=== PATIENT | female | born 1970 | race Caucasian/White ===

== ENCOUNTER → 2017-09-30 | Outpatient (CLI) | payer MEDICARE, SELFPAY | PROVIDERS: Visit Provider Nurse Practitioner Family | DX: F41.9 Anxiety disorder, unspecified (principal); R53.83 Other fatigue; E55.9 Vitamin D deficiency, unspecified; Z79.899 Other long term (current) drug therapy | CPT/HCPCS: 80053; 80061; 82306; 82672; 83036; 84144; 84439; 84443; 85025 ==

== ENCOUNTER → 2017-12-30 10:32 | Outpatient (CLI) | payer MEDICARE, SELFPAY | PROVIDERS: Visit Provider Nurse Practitioner Family | DX: Z79.899 Other long term (current) drug therapy (principal) ==

== ENCOUNTER → 2018-02-17 12:51 | Outpatient (CLI) | payer MEDICARE, SELFPAY ==
--- NOTE | 2018-02-17 12:54 | XR_ITS ---
XR chest 2V HISTORY: ITS.REASON: cough ORDERING PHYSICIAN: Lay Arroyo PATIENT AGE: 47 years COMPARISON: 07/17/2017 FINDINGS: The cardiomediastinal silhouette and pulmonary vascularity are within normal limits. There is hyperinflation with attenuation of the peripheral pulmonary vessels. Biapical fibrotic changes are present. No lobar consolidation or collapse is evident. Chronic changes are present in the right CP angle... No acute bony abnormalities. IMPRESSION: 1. COPD with chronic change. 2. No acute finding
== END ==
PROVIDERS: PCP Emergency Medicine; Visit Provider Nurse Practitioner Family
DX: R06.02 Shortness of breath (principal)
CPT/HCPCS: 71046

== ENCOUNTER → 2018-02-18 08:48 | Outpatient (CLI) | payer MEDICARE, SELFPAY | PROVIDERS: PCP Emergency Medicine; Visit Provider Nurse Practitioner Family | DX: R06.02 Shortness of breath (principal) ==

== ENCOUNTER → 2018-06-26 09:33 | Outpatient (CLI) | payer MEDICARE, SELFPAY ==
[2018-06-26 18:37] LABS: Amphetamine/Metha Screen,Urine Negative ng/mL (<1000); Barbiturates Screen,Urine Negative ng/mL (<200); Benzodiazepines Screen,Urine Positive ng/mL (<200); Cannabinoid Screen,Urine Positive ng/mL (<50); Cocaine Screen,Urine Negative ng/mL (<300); Methadone Screen,Urine Negative ng/mL (<300); Opiate Screen,Urine Negative ng/mL (<300); Phencyclidine Screen,Urine Negative ng/mL (<25)
== END ==
PROVIDERS: Visit Provider Nurse Practitioner Family
DX: Z79.899 Other long term (current) drug therapy (principal)
CPT/HCPCS: 80305

== ENCOUNTER → 2018-09-25 14:31 | Outpatient (CLI) | payer MEDICARE, SELFPAY ==
[2018-09-25 16:33] LABS: Amphetamine/Metha Screen,Urine Negative ng/mL (<1000); Barbiturates Screen,Urine Negative ng/mL (<200); Benzodiazepines Screen,Urine Positive ng/mL (<200); Cannabinoid Screen,Urine Positive ng/mL (<50); Cocaine Screen,Urine Negative ng/mL (<300); Methadone Screen,Urine Negative ng/mL (<300); Opiate Screen,Urine Negative ng/mL (<300); Phencyclidine Screen,Urine Negative ng/mL (<25)
== END ==
PROVIDERS: Visit Provider Nurse Practitioner Family
DX: Z79.899 Other long term (current) drug therapy (principal)
CPT/HCPCS: 80305

== ENCOUNTER → 2018-10-27 17:59 | Outpatient (CLI) | payer MEDICARE, SELFPAY | PROVIDERS: Visit Provider Emergency Medicine | DX: J02.9 Acute pharyngitis, unspecified (principal) ==

== ENCOUNTER → 2018-12-25 13:21 | Outpatient (CLI) | payer MEDICARE, SELFPAY ==
[2018-12-25 14:17] LABS: Amphetamine/Metha Screen,Urine Negative ng/mL (<1000); Barbiturates Screen,Urine Negative ng/mL (<200); Benzodiazepines Screen,Urine Positive ng/mL (<200); Cannabinoid Screen,Urine Positive ng/mL (<50); Cocaine Screen,Urine Negative ng/mL (<300); Methadone Screen,Urine Negative ng/mL (<300); Opiate Screen,Urine Negative ng/mL (<300); Phencyclidine Screen,Urine Negative ng/mL (<25)
== END ==
PROVIDERS: Visit Provider Nurse Practitioner Family
DX: Z79.899 Other long term (current) drug therapy (principal)
CPT/HCPCS: 80305

== ENCOUNTER → 2019-01-21 10:55 | Outpatient (CLI) | payer MEDICARE, SELFPAY ==
--- NOTE | 2019-01-21 10:59 | XR_ITS ---
XR chest 2V HISTORY: ITS.REASON: cough ORDERING PHYSICIAN: Lay Arroyo PATIENT AGE: 48 years COMPARISON: 02/17/2018. FINDINGS: The cardiomediastinal silhouette and pulmonary vascularity are within normal limits. There is mild biapical pleural thickening with hyperinflation and attenuation of the peripheral pulmonary vessels consistent with COPD. No lobar consolidation or collapse and no significant change compared to the previous study. IMPRESSION: COPD, no change with no acute finding.
== END ==
PROVIDERS: PCP Nurse Practitioner Family; Visit Provider Nurse Practitioner Family
DX: J44.9 Chronic obstructive pulmonary disease, unspecified (principal); R05 Cough; R06.02 Shortness of breath; R07.81 Pleurodynia
CPT/HCPCS: 71046

== ENCOUNTER 2019-02-09 11:55 | Observation (INO) ==
--- NOTE | 2019-02-09 12:12 | Emergency Department Note ---
ED Disposition Clinical Impression: COPD exacerbation Disposition: Admitted as Observation Condition on Discharge: Fair Referrals: Milton Machuca MD [Primary Care Provider] - - Critical Care Critical Care Time: No Attestation: On , the high probability of a clinically significant, sudden or life th reatening deterioration of the following system(s) required my full and direct attention, intervention and personal management. The time I documented below is in addition to time spent performing reported procedures but includes the following listed in this critical care notation. Medical Decision Making - Anurag Inquiry Pt receiving controlled substance: No Vital Signs: 02/09/19 11:59 02/09/19 12:32 02/09/19 12:54 Temperature 98.9 F Temperature Source Oral Pulse Rate 130 H Pulse Rate [Right Brachial] 136 H 130 H Respiratory Rate 22 Blood Pressure [Right Arm] 130/111 H 142/56 H Blood Pressure Mean [Right Arm] 117 84 Blood Pressure Source [Right Arm] Automatic Cuff Automatic Cuff Blood Pressure Position [Right Arm] Sitting Sitting 02 Sat by Pulse Oximetry 92 L 93 L Oxygen Delivery Method Nasal Cannula Nasal Cannula Oxygen Flow Rate (LPM) 2 2 02/09/19 13:00 Temperature Temperature Source Pulse Rate Pulse Rate [Right Brachial] 132 H Respiratory Rate 20 Blood Pressure [Right Arm] 127/73 Blood Pressure Mean [Right Arm] 91 Blood Pressure Source [Right Arm] Automatic Cuff Blood Pressure Position [Right Arm] Sitting 02 Sat by Pulse Oximetry 92 L Oxygen Delivery Method Nasal Cannula Oxygen Flow Rate (LPM) - Lab Data Lab Results 02/09/19 12:07: WBC 7.6, RBC 4.65, Hgb 14.2, Hct 43.8, MCV 94.3, MCH 30.6, MCHC 32.4, RDW 12.9, Plt Count 174, MPV 7.9, Neut % (Auto) 82.7 H, Lymph % (Auto) 11.1, [place] % (Auto) 4.6, Eos % (Auto) 1.0, Baso % (Auto) 0.5, Neut # (Auto) 6.3, Lymph # (Auto) 0.8, [place] # (Auto) 0.4, Eos # (Auto) 0.1, Baso # (Auto) 0.0 02/09/19 12:07: Sodium 138, Potassium 4.0, Chloride 97 L, Carbon Dioxide 34 H, Anion Gap 11.0, BUN 10, Creatinine 0.69, Estimated Creat Clear 100, Estimated GFR 91, Est GFR ( Amer) 110, Glucose 107 H, Calcium 9.0, Total Bilirubin 0.3, AST 11 L, ALT 20, Alkaline Phosphatase 121 H, Total Protein 7.3, Albumin 3.8, Globulin 3.5 H, Albumin/Globulin Ratio 1.1 02/09/19 12:07: Lactate 1.3 02/09/19 12:10: Specimen Source R radial, O2 % 2.5lpm, ABG pH 7.40, ABG pCO2 54.1 H, ABG pO2 56.6 L, ABG HCO3 32.8 H, ABG Total CO2 34.5 H, ABG O2 Saturation 90, ABG Base Excess 8.1 H, Leo Test Acceptable Result diagrams: 02/09/19 12:07 02/09/19 12:07 Orders (Tests/Meds): ED MEDICATIONS Generic Name Dose Route Start Last Admin Trade Name Freq PRN Reason Stop Dose Admin Sodium Chloride 3 ml 02/09/19 12:08 Sodium Chloride 3% 15ml [facility] 03/11/19 12:07 ONCE PRN INDUCE SPUTUM COLLECTION Discontinued Medications Generic Name Dose Route Start Last Admin Trade Name Freq PRN Reason Stop Dose Admin Albuterol/Ipratropium 3 ml 02/09/19 12:09 02/09/19 12:25 Duoneb 3ml [facility] 02/09/19 12:10 3 ml ONCE ONE Administration Methylprednisolone Sodium Succinate 125 mg 02/09/19 12:09 02/09/19 12:31 Solu-Medrol 125mg/2ml Vial IV 02/09/19 12:10 125 mg ONCE ONE Administration ORDERS Category Date Time Status Blood Culture Stat Micro 02/09/19 12:08 Received Sputum Culture & Gram Stain Stat Micro 02/09/19 12:08 Ordered - Radiology Data #1 Image(s): Chest Image Reviewed: Yes I reviewed the patient's radiology image COPD, no acute infiltrate seen. - Physician Consults Physician Consulted: Sven Time: 13:50 Reason -: Admission Comment/Response: Agrees to admit the patient to the hospital. We discussed the patient's clinical information, including history, exam, laboratory and radiology results and ED course. Per hospital procedure, I will write temporary bridge inpatient orders on the patient. Specific orders requested by the admitting physician: Continue nebulizers, steroids, start Levaquin - Reevaluation(s) Time: 13:19 Reevaluation #1: Feels a little bit better. Still has wheezes, and appears dyspneic with accessory muscle use while speaking. Speaks in short sentences. General Adult HPI - General Chief complaint: Shortness of Breath/Dyspnea Stated complaint: soa Time Seen by Provider: 02/09/19 12:12 Mode of Arrival: Ambulatory Limitations: No Limitations Description of Symptoms (Recalled from ER Triage Doc. by RN): Difficulty breathing - History of Present Illness HPI narrative: Sent from the office of Dr. Machuca, where the patient was seen by Hilton Zepeda She says she has been short of breath since Friday 4 days ago. She has a cough producing "nasty sputum". She says it is also in her head with nasal congestion, nasal drainage, postnasal drip. Denies sore throat. She has had a fever. She says she was seen on the of this month by her primary care providers. Treated with an injection of steroids and antibiotics and oral Z-Brian and steroids. She says she does not think she ever got over it completely. She has COPD. She is on oxygen continuously at home and uses a nebulizer. Last nebulizer treatment at 5 AM. Used her rescue inhaler twice while taking a shower at about 9am. States she quit smoking about 2 months ago. - Related Data Home Medications Medication Instructions Recorded Confirmed ipratropium-albuterol 0.5 mg-3 3 ml INHALATION Q4-6H PRN 10/31/17 02/09/19 mg(2.5 mg base)/3 mL nebulization soln Albuterol Sulfate [Ventolin HFA] 2 puff INHALATION Q6H 02/09/19 02/09/19 Escitalopram Oxalate 10 mg PO QDAY 02/09/19 02/09/19 Fluticasone/Umeclidin/Vilanter 1 inh INHALATION DAILY 02/09/19 02/09/19 [Trelegy Ellipta] Montelukast Sodium [Singulair] 10 mg PO QHS 02/09/19 02/09/19 Nystatin 1 applic TOPICAL BID 02/09/19 02/09/19 diazePAM [Valium] 5 mg PO BID 02/09/19 02/09/19 Allergies Allergy/AdvReac Type Severity Reaction Status Date / Time No Known Allergies Allergy Verified 02/09/19 12:05 [facility] History - Hepatitis A Screen Drug use history?: No High risk sexual behaviors?: No History of sexually transmitted infection?: No Currently employed?: No Childcare worker?: No Do you have indoor plumbing?: Yes Do you have electricity?: Yes Attestation statement:: This patient has been screened for Hepatitis A risk factors. I have reviewed the patient's past medical history: Yes Medical History: Reports:: Anxiety, Chronic Obstructive Pulmonary Disease (COPD), Depression Comment: Anxiety Laterality Cases: Other Surgeries: Yes: Appendectomy, Hernia Repair, Hysterectomy-Total, Hysterectomy-Partial, Other Amputation: No Fractures: No - Social History Smoking Status: Former smoker Tobacco Type: cigarettes # Packs/Day (cigarettes): 1 Alcohol Intake: never Substance Use Type: denies use Occupational Status: disabled Housing: house Household Members: family - Psychiatric History Pschychiatric History:: Reports:: Anxiety, Depression Family Hx:: Cancer, Heart Attack, Diabetes, Hypertension, Thyroid Disorder, Stroke ROS Obtained: Yes All systems reviewed & no additional complaints - Constitutional Constitutional: Reports fever(s) - ENT Ears, Nose, Mouth, and Throat: Reports nasal congestion, Reports nasal discharge, Reports post nasal drip, Denies sore throat - Cardiovascular Cardiovascular: Reports chest pain - Respiratory Respiratory: Yes cough, Yes dyspnea, Yes excessive phlegm production, Yes wheezing - Gastrointestinal Gastrointestingal: Denies: diarrhea, vomiting Physical Exam - General General appearance: alert, in distress (Mild respiratory distress) - Head Head exam: atraumatic, normocephalic - Eye Eye exam: Present: normal appearance, EOMI - ENT ENT exam: Present: mucous membranes moist - Neck Neck exam: Present: normal inspection, trachea midline - Chest Chest inspection: Present: normal inspection, symmetric chest wall rise - Respiratory Respiratory exam: Present: respiratory distress, wheezes - Cardiovascular Cardiovascular exam: Present: normal rhythm, tachycardia (120 on my exam), normal heart sounds - Abdominal Exam Abdominal exam: Present: soft. Absent: distention, tenderness - Extremities Exam Extremities exam: Present: normal inspection, normal capillary refill - Back Exam Back exam: Present: normal inspection, tenderness (Left periscapular) - Neurological Exam Neurological exam: Present: alert, oriented X3. Absent: motor sensory deficit - Psychiatric Psychiatric exam: Present: normal affect, normal mood - Skin Skin exam: Present: warm, dry
[2019-02-09 12:27] LABS: Basophils % 0.5 % (0.1-2.0); Eosinophils # 0.1 K/mm3 (0.0-0.4); Hematocrit 43.8 % (37.0-47.0); Hemoglobin 14.2 g/dL (12.2-16.2); Lymphocytes # 0.8 K/mm3 (0.7-4.5); Lymphocytes % 11.1 % (10-50); Mean Corpuscular HGB Conc 32.4 g/dL (31.8-35.4); Mean Corpuscular Hemoglobin 30.6 pg (27.0-31.2); Mean Corpuscular Volume 94.3 fl (81-99); Mean Platelet Volume 7.9 fl (7.4-10.4); Monocytes # 0.4 K/mm3 (0.1-1.0); Monocytes % 4.6 % (1.7-9.3); Neutrophils # 6.3 K/mm3 (1.8-7.8); Neutrophils % 82.7 % (37.0-80.0); Platelet Count 174 K/mm3 (142-424); Red Blood Count 4.65 M/mm3 (4.20-5.40); Red Cell Distribution Width 12.9 % (11.5-17.5); White Blood Count 7.6 K/mm3 (4.8-10.8)
[2019-02-09 12:29] LABS: Albumin Level 3.8 gm/dL (3.4-5.0); Albumin/Globulin Ratio 1.1 (1.1-1.8); Bilirubin,Total 0.3 mg/dL (0.2-1.0); Globulin 3.5 gm/dl (1.3-3.2); Total Protein,Serum 7.3 gm/dL (6.4-8.2)
[2019-02-09 13:18] LABS: ABG Base Excess 8.1 mmol/L (-2.4-2.3); ABG HCO3 32.8 mmhg (22.0-26.0); ABG Oxygen Saturation 90 % (90-100); ABG PO2 56.6 mmhg (80-100); ABG TCO2 34.5 mmhg (23-27)
[2019-02-09 13:19] LABS: Allen's Test ACCEPTABLE; Oxygen 2.5LPM %
[2019-02-09 13:20] LABS: ABG PCO2 54.1 mmhg (35.0-45.0)
--- NOTE | 2019-02-09 15:13 | Pharmacy Consult Notes ---
[facility] Pharmacy VTE Monitoring - Patient Demographics Admission date: 02/09/19 Report Date: 02/09/19 Time: 15:13 Allergies/Adverse Reactions: Patient Allergies No Known Allergies Allergy (Verified 02/09/19 12:05) Height: 1.7 m Weight: 65.459 kg Patient Problems: Current Active Problems (Updated 02/09/19 @ 13:19 by Kareem Guzman MD) COPD exacerbation (Acute) - VTE Risk Labs: VTE Related Lab Results Hgb 14.2 g/dL (12.2-16.2) 02/09/19 12:07 Hct 43.8 % (37.0-47.0) 02/09/19 12:07 Plt Count 174 K/mm3 (142-424) 02/09/19 12:07 BUN 10 mg/dL (7-18) 02/09/19 12:07 Creatinine 0.69 mg/dL (0.55-1.02) 02/09/19 12:07 Estimated Creat Clear 100 mL/min (50-200) 02/09/19 12:07 VTE Score: 4 VTE Risk Level: Low Risk - Prophylaxis VTE Prophylaxis Ordered?: Yes Types of VTE Prophylaxis: TEDS Knee High Location of Applied Device: Bilateral Lower Extremeties - VTE Diagnosis Confirmed Treatment or plan recommended: Continue Current Treatment
--- NOTE | 2019-02-09 20:31 | History & Physical Report ---
*Admission Date: 02/09/19 *Chief complaint: sob *History of present illness: this wf has o2 dep copd and was seen by pcp and treated as op and somewhat improved but continued to have prod cough and progressive sob and fatigue - pt was referred to ed as she had failed op treatment - nt from the office of Dr. Tawana pardo, where the patient was seen by Hilton Zepeda She says she has been short of breath since Friday 4 days ago. She has a cough producing "nasty sputum". She says it is also in her head with nasal congestion, nasal drainage, postnasal drip. Denies sore throat. She has had a fever. She says she was seen on the of this month by her primary care providers. Treated with an injection of steroids and antibiotics and oral Z-Brian and steroids. She says she does not think she ever got over it completely. She has COPD. She is on oxygen continuously at home and uses a nebulizer. Last nebulizer treatment at 5 AM. Used her rescue inhaler twice while taking a shower at about 9am. States she quit smoking about 2 months ago. pt was admitted for ivf and abx and steroids and resp treatment [facility] History I have reviewed the patient's past medical history: Yes Medical History: Reports:: Anxiety, Chronic Obstructive Pulmonary Disease (COPD), Depression Denies:: Cancer, Diabetes Mellitus Type 1, Diabetes Mellitus Type 2, MRSA *Have you ever received a pneumonia vaccine?: Yes *Have you received a flu vaccine this season?: Yes Laterality Cases: Bilateral: Tonsillectomy Other Surgeries: Yes: Appendectomy, Hernia Repair, Hysterectomy-Total, Hysterectomy-Partial, Other Amputation: No Fractures: No - *Social History Educational Level: Completed High School Smoking Status: Former smoker Tobacco Type: cigarettes # Packs/Day (cigarettes): 1 Alcohol Intake: former Alcohol Intake Frequency:: holidays/special occasions only Substance Use Type: marijuana Last Used Substance: unknown *Occupational Status:: disabled Housing: house Household Members: family *Travel in the last 8 weeks: None - Psychiatric History Expresses thoughts of harming self/others: None Suicide Plan Description: No Plan Pschychiatric History:: Reports:: Anxiety, Depression Family Hx:: Cancer, Heart Attack, Diabetes, Hypertension, Thyroid Disorder, Stroke Review of Systems - Review of Systems Review of systems:: pertinent systems reviewed and negative unless documented below - Constitutional Reports lack of energy, Reports weakness, Denies fever(s) - Eyes Denies change in vision - ENT Denies sore throat - *Cardiovascular Reports shortness of breath, Reports shortness of breath with activity, Denies chest pain at rest - *Respiratory Reports change in phlegm color, Reports cough, Reports pain on inspiration, Denies coughing up blood - *Gastrointestinal Denies abdominal pain - *Genitourinary Denies blood in urine - *Musculoskeletal Denies joint pain - Integumentary/Breasts Denies rash - *Neurologic Denies seizure-like activity - Psychiatric Denies anxiety Meds Home Medications Medication Instructions Recorded Confirmed Type ipratropium-albuterol 0.5 mg-3 3 ml INHALATION Q4-6H PRN 10/31/17 02/09/19 History mg(2.5 mg base)/3 mL nebulization soln Albuterol Sulfate [Ventolin HFA] 2 puff INHALATION Q6H 02/09/19 02/09/19 History Escitalopram Oxalate 10 mg PO QDAY 02/09/19 02/09/19 History Fluticasone/Umeclidin/Vilanter 1 inh INHALATION DAILY 02/09/19 02/09/19 History [Trelegy Ellipta] Montelukast Sodium [Singulair] 10 mg PO QHS 02/09/19 02/09/19 History Nystatin 1 applic TOPICAL BID 02/09/19 02/09/19 History diazePAM [Valium] 5 mg PO NEEDED PRN 02/09/19 02/09/19 History Allergies Allergy/AdvReac Type Severity Reaction Status Date / Time No Known Allergies Allergy Verified 02/09/19 12:05 Exam Vital signs and Labs for Last 24 Hours: Temp Pulse Resp BP Pulse Ox 98.1 F 103 H 20 119/56 L 91 L 02/09/19 20:00 02/09/19 20:00 02/09/19 20:00 02/09/19 20:00 02/09/19 20:00 Laboratory Results - last 24 hr 02/09/19 12:07: WBC 7.6, RBC 4.65, Hgb 14.2, Hct 43.8, MCV 94.3, MCH 30.6, MCHC 32.4, RDW 12.9, Plt Count 174, MPV 7.9, Neut % (Auto) 82.7 H, Lymph % (Auto) 11.1, [place] % (Auto) 4.6, Eos % (Auto) 1.0, Baso % (Auto) 0.5, Neut # (Auto) 6.3, Lymph # (Auto) 0.8, [place] # (Auto) 0.4, Eos # (Auto) 0.1, Baso # (Auto) 0.0 02/09/19 12:07: Sodium 138, Potassium 4.0, Chloride 97 L, Carbon Dioxide 34 H, Anion Gap 11.0, BUN 10, Creatinine 0.69, Estimated Creat Clear 100, Estimated GFR 91, Est GFR ( Amer) 110, Glucose 107 H, Calcium 9.0, Total Bilirubin 0.3, AST 11 L, ALT 20, Alkaline Phosphatase 121 H, Total Protein 7.3, Albumin 3.8, Globulin 3.5 H, Albumin/Globulin Ratio 1.1 02/09/19 12:07: Lactate 1.3 02/09/19 12:10: Specimen Source R radial, O2 % 2.5lpm, ABG pH 7.40, ABG pCO2 54.1 H, ABG pO2 56.6 L, ABG HCO3 32.8 H, ABG Total CO2 34.5 H, ABG O2 Saturation 90, ABG Base Excess 8.1 H, Leo Test Acceptable I & O for Last 24 hours: Intake & Output 02/07/19 02/08/19 02/09/19 02/10/19 11:59 11:59 11:59 11:59 Intake Total 820 / 820 Output Total 600 / 600 Balance 220 / 220 Weight 140 lb 144 lb 5 oz - Constitutional no acute distress, thin - *Routine HEENT Exam Head: Present: normocephalic Eye: Present: EOMI, PERRL ENT: Present: mucous membranes dry - *Routine Neck Exam Present: supple. Absent: JVD - *Routine Respiratory Exam Present: decreased breath sounds, rhonchi, wheezes, diminished air movement - *Routine Cardiovascular Exam Present: RRR, murmur. Absent: rubs - *Routine Abdominal Exam Present: soft - *Routine Extremities Exam Absent: calf tenderness - *Routine Skin Exam Present: intact - *Routine Neurological Exam Present: alert, oriented X3, CN II-XII intact - Routine Psychiatric Exam Present: normal affect Assessment and Plan (1) COPD (chronic obstructive pulmonary disease) with acute bronchitis Current visit: Yes Status: Acute Category: Medical Code(s): J44.0 - Chronic obstructive pulmonary disease with acute lower respiratory infection; J20.9 - Acute bronchitis, unspecified (2) COPD exacerbation Current visit: Yes Status: Acute Category: Medical Code(s): J44.1 - Chronic obstructive pulmonary disease with (acute) exacerbation
[2019-02-10 06:47] LABS: Basophils % 0.3 % (0.1-2.0); Eosinophils % 0.1 % (0.1-12.0); Hematocrit 41.3 % (37.0-47.0); Hemoglobin 13.1 g/dL (12.2-16.2); Lymphocytes # 0.4 K/mm3 (0.7-4.5); Lymphocytes % 9.4 % (10-50); Mean Corpuscular HGB Conc 31.7 g/dL (31.8-35.4); Mean Corpuscular Hemoglobin 30.2 pg (27.0-31.2); Mean Corpuscular Volume 95.3 fl (81-99); Mean Platelet Volume 7.8 fl (7.4-10.4); Monocytes # 0.2 K/mm3 (0.1-1.0); Monocytes % 3.9 % (1.7-9.3); Neutrophils # 3.6 K/mm3 (1.8-7.8); Neutrophils % 86.3 % (37.0-80.0); Platelet Count 163 K/mm3 (142-424); Red Blood Count 4.34 M/mm3 (4.20-5.40); Red Cell Distribution Width 12.8 % (11.5-17.5); White Blood Count 4.2 K/mm3 (4.8-10.8)
[2019-02-10 06:52] LABS: Anion Gap 9.3 mEq/L (5-15); Calcium 9.2 mg/dL (8.5-10.1); Potassium 4.3 mmoL/L (3.5-5.1)
--- NOTE | 2019-02-10 08:46 | Progress Note ---
Internal Medicine - PN: Subj *Date: 02/10/19 *Time: 08:44 Interval history: pt with prod cough and sob with chronic o2 Exam Vital signs and Labs for Last 24 Hours: Temp Pulse Resp BP Pulse Ox 99.2 F 88 19 103/63 L 94 L 02/10/19 08:00 02/10/19 08:00 02/10/19 08:00 02/10/19 08:00 02/10/19 08:00 Laboratory Results - last 24 hr 02/09/19 12:07: WBC 7.6, RBC 4.65, Hgb 14.2, Hct 43.8, MCV 94.3, MCH 30.6, MCHC 32.4, RDW 12.9, Plt Count 174, MPV 7.9, Neut % (Auto) 82.7 H, Lymph % (Auto) 11.1, [place] % (Auto) 4.6, Eos % (Auto) 1.0, Baso % (Auto) 0.5, Neut # (Auto) 6.3, Lymph # (Auto) 0.8, [place] # (Auto) 0.4, Eos # (Auto) 0.1, Baso # (Auto) 0.0 02/09/19 12:07: Sodium 138, Potassium 4.0, Chloride 97 L, Carbon Dioxide 34 H, Anion Gap 11.0, BUN 10, Creatinine 0.69, Estimated Creat Clear 100, Estimated GFR 91, Est GFR ( Amer) 110, Glucose 107 H, Calcium 9.0, Total Bilirubin 0.3, AST 11 L, ALT 20, Alkaline Phosphatase 121 H, Total Protein 7.3, Albumin 3.8, Globulin 3.5 H, Albumin/Globulin Ratio 1.1 02/09/19 12:07: Lactate 1.3 02/09/19 12:10: Specimen Source R radial, O2 % 2.5lpm, ABG pH 7.40, ABG pCO2 54.1 H, ABG pO2 56.6 L, ABG HCO3 32.8 H, ABG Total CO2 34.5 H, ABG O2 Saturation 90, ABG Base Excess 8.1 H, Leo Test Acceptable 02/09/19 20:28: Troponin I < 0.02 02/10/19 05:30: WBC 4.2 L D, RBC 4.34, Hgb 13.1, Hct 41.3, MCV 95.3, MCH 30.2, MCHC 31.7 L, RDW 12.8, Plt Count 163, MPV 7.8, Neut % (Auto) 86.3 H, Lymph % (Auto) 9.4 L, [place] % (Auto) 3.9, Eos % (Auto) 0.1, Baso % (Auto) 0.3, Neut # (Auto) 3.6, Lymph # (Auto) 0.4 L, [place] # (Auto) 0.2, Eos # (Auto) 0.0, Baso # (Auto) 0.0 02/10/19 05:30: Sodium 140, Potassium 4.3, Chloride 100, Carbon Dioxide 35 H, Anion Gap 9.3, BUN 13 D, Creatinine 0.50 L D, Estimated Creat Clear 142, Estimated GFR 132, Est GFR ( Amer) 159 D, Glucose 122 H, Calcium 9.2, Magnesium 2.0 I & O for Last 24 hours: Intake & Output 02/07/19 02/08/19 02/09/19 02/10/19 11:59 11:59 11:59 11:59 Intake Total 1300 / 1300 Output Total 600 / 600 Balance 700 / 700 Weight 140 lb 144 lb 4 oz - Constitutional no acute distress - *Routine HEENT Exam Head: Present: normocephalic Eye: Present: EOMI, PERRL ENT: Present: mucous membranes dry - *Routine Neck Exam Present: supple - *Routine Respiratory Exam Present: rhonchi, wheezes, distant breath sounds - *Routine Cardiovascular Exam Present: RRR, murmur - *Routine Abdominal Exam Present: soft - *Routine Extremities Exam Present: full ROM - *Routine Skin Exam Present: intact - *Routine Neurological Exam Present: alert - Routine Psychiatric Exam Present: normal affect Assessment and Plan (1) COPD (chronic obstructive pulmonary disease) with acute bronchitis Current visit: Yes Status: Acute Category: Medical Code(s): J44.0 - Chronic obstructive pulmonary disease with acute lower respiratory infection; J20.9 - Acute bronchitis, unspecified (2) COPD exacerbation Current visit: Yes Status: Acute Category: Medical Code(s): J44.1 - Chronic obstructive pulmonary disease with (acute) exacerbation (3) Tobacco use Current visit: Yes Status: Acute Category: Medical Code(s): Z72.0 - Tobacco use
[2019-02-10 09:36] LABS: Lymphocytes % 4 % (10-50); Monocytes % 2 % (2-9); Neutrophils % 94 % (42-76); Total Cells Counted 100
[2019-02-10 09:37] LABS: RBC Morphology Normal
--- NOTE | 2019-02-11 10:34 | Cardiology Report ---
PROCEDURE: 2-D M-mode and color Doppler study INDICATIONS FOR THE TEST: Chest pain COPD+ Heart Murmur Tobacco Smoking Palpitations Fatigue Syncope Edema Hypertension Diabetes Mellitus Rheumatic Fever SOB BOSCH Obesity Hyperlipidemia Family History HD Additional History HOME O2, NEBS, TACHYCARDIA PATIENT INFORMATION HEIGHT: 67 WEIGHT:144 GENDER: Female B/P:119/56 2-D/M-MODE INTERPRETATION: 2-D MEASUREMENTS OBSERVED VALUES IN CMS Right Ventricular Dimension (RVDd) 2.2 Interventricular Septum (Thickness)(IVsd) 0.9 Left Ventricular Internal Dimensions(LVIDd) 3.8 Left Ventricular Posterior Wall (Thickness)(LVPWd) 0.8 Aortic Root 2.8 Aortic Cusp Separation 2.0 Left Atrial Dimensions (LAD) 3.0 2D 1. Left atrium is normal size, left ventricle is normal size, there is no concentric left ventricular hypertrophy, there is hyperdynamic left ventricular systolic function, visually estimated ejection fraction of over 65% with no regional wall motion abnormality. 2. The right atrium and right ventricle are mildly enlarged with normal contractility. 3. The aortic, mitral and tricuspid valvular grossly normal. 4. The pulmonic valve is poorly visualized. 5. No significant pericardial effusion noted. DOPPLER INTERROGATION: Doppler interrogation of the aortic, mitral and tricuspid valvular presence of mild mitral and tricuspid regurgitation, tricuspid regurgitation jet velocity is inadequate for calculation of the right ventricular systolic pressure, diastolic parameters are inconclusive. CONCLUSION: 1. Normal left atrial size, normal left ventricular size, hyperdynamic left ventricular systolic function, visually estimated ejection fraction over 65% with no regional wall motion abnormality, diastolic parameters are inconclusive. 2. Mildly enlarged right ventricle with normal contractility. 3. Mild mitral and tricuspid regurgitation 4. No significant pericardial effusion noted.
--- NOTE | 2019-02-11 13:13 | Progress Note ---
Internal Medicine - PN: Subj *Date: 02/11/19 *Time: 13:10 Interval history: Pt state she does not feel like she would like to go home today, still SOA. Exam Vital signs and Labs for Last 24 Hours: Temp Pulse Resp BP Pulse Ox 98.2 F 89 20 121/52 L 100 02/11/19 08:00 02/11/19 09:49 02/11/19 08:00 02/11/19 08:00 02/11/19 08:00 I & O for Last 24 hours: Intake & Output 02/08/19 02/09/19 02/10/19 02/11/19 23:59 23:59 23:59 23:59 Intake Total 820 / 820 2005 2338 / 2338 Output Total 600 / 600 3500 / 3500 Balance 220 / 220 2005 -1162 / -1162 Weight 144 lb 5 oz 144 lb 4 oz 145 lb 3 oz Microbiology Reports for the Last 24 Hours: Microbiology 02/09/19 12:08 Blood Blood Culture - Preliminary NO GROWTH AFTER 48 HOURS 02/09/19 12:08 Blood Blood Culture - Preliminary NO GROWTH AFTER 48 HOURS 02/10/19 08:00 Sputum - Expectorated Sputum Gram Stain - Final 02/10/19 08:00 Sputum - Expectorated Sputum Sputum Culture - Preliminary - Constitutional no acute distress - *Routine HEENT Exam Head: Present: normocephalic Eye: Present: EOMI, PERRL, normal accommodation ENT: Present: mucous membranes moist - *Routine Neck Exam Present: full ROM - Routine Chest/Breast/Axilla Exam Chest wall: Absent: tenderness - *Routine Respiratory Exam Present: decreased breath sounds, rhonchi - *Routine Cardiovascular Exam Present: RRR, Normal S1, Normal S2 - *Routine Abdominal Exam Present: soft, normoactive bowel sounds - *Routine Extremities Exam Present: full ROM. Absent: cyanosis, clubbing, edema - Routine Back/Spine/Pelvis Exam Back/Spine: Present: full ROM Pelvis: Absent: buttock tenderness, SI joint tenderness - *Routine Skin Exam Present: intact. Absent: mottling, petechiae - *Routine Neurological Exam Present: alert, oriented X3, CN II-XII intact - Routine Psychiatric Exam Present: normal affect, normal thought process Assessment and Plan (1) COPD (chronic obstructive pulmonary disease) with acute bronchitis Current visit: Yes Status: Acute Category: Medical Code(s): J44.0 - Chronic obstructive pulmonary disease with acute lower respiratory infection; J20.9 - Acute bronchitis, unspecified (2) COPD exacerbation Current visit: Yes Status: Acute Category: Medical Code(s): J44.1 - Chronic obstructive pulmonary disease with (acute) exacerbation (3) Tobacco use Current visit: Yes Status: Acute Category: Medical Code(s): Z72.0 - Tobacco use - Assessment and plan all Dx Assessment and Plan for all problems:: Rounded w/ Dr. Machuca, all orders per Dr. Machuca
--- NOTE | 2019-02-12 08:37 | Progress Note ---
Internal Medicine - PN: Subj *Date: 02/12/19 *Time: 08:35 Interval history: Patient states feeling worse today, patient states increased shortness of breath and respiratory rate. Patient states walking to the bathroom shortness of breath increases. Exam Vital signs and Labs for Last 24 Hours: Temp Pulse Resp BP Pulse Ox 98.2 F 97 H 21 116/74 92 L 02/12/19 08:00 02/12/19 08:00 02/12/19 08:00 02/12/19 08:00 02/12/19 08:00 I & O for Last 24 hours: Intake & Output 02/09/19 02/10/19 02/11/19 02/12/19 11:59 11:59 11:59 11:59 Intake Total 1300 / 1300 3534 / 3534 3118 / 3118 Output Total 600 / 600 1100 / 1100 4250 / 4250 Balance 700 / 700 2434 / 2434 -1132 / -1132 Weight 140 lb 144 lb 4 oz 145 lb 3 oz 151 lb 9 oz Microbiology Reports for the Last 24 Hours: Microbiology 02/09/19 12:08 Blood Blood Culture - Preliminary NO GROWTH AFTER 48 HOURS 02/09/19 12:08 Blood Blood Culture - Preliminary NO GROWTH AFTER 48 HOURS 02/10/19 08:00 Sputum - Expectorated Sputum Gram Stain - Final 02/10/19 08:00 Sputum - Expectorated Sputum Sputum Culture - Preliminary - Constitutional no acute distress - *Routine HEENT Exam Head: Present: normocephalic Eye: Present: PERRL ENT: Present: mucous membranes moist - *Routine Neck Exam Present: supple. Absent: lymphadenopathy - *Routine Respiratory Exam Present: wheezes, diminished air movement - *Routine Cardiovascular Exam Present: RRR - *Routine Abdominal Exam Present: soft, normoactive bowel sounds. Absent: tenderness - *Routine Extremities Exam Absent: cyanosis, clubbing, edema - *Routine Skin Exam Present: warm. Absent: rash - *Routine Neurological Exam Present: alert, oriented X3 - Routine Psychiatric Exam Present: normal affect Assessment and Plan (1) COPD (chronic obstructive pulmonary disease) with acute bronchitis Current visit: Yes Status: Acute Category: Medical Code(s): J44.0 - Chronic obstructive pulmonary disease with acute lower respiratory infection; J20.9 - Acute bronchitis, unspecified (2) COPD exacerbation Current visit: Yes Status: Acute Category: Medical Code(s): J44.1 - Chronic obstructive pulmonary disease with (acute) exacerbation (3) Tobacco use Current visit: Yes Status: Acute Category: Medical Code(s): Z72.0 - Tobacco use - Assessment and plan all Dx Assessment and Plan for all problems:: Rounded with Dr. Machuca all orders per Sven Repeat chest x-ray ABG
[2019-02-12 09:26] LABS: ABG Base Excess 9.8 mmol/L (-2.4-2.3); ABG Oxygen Saturation 92 % (90-100); ABG PH 7.38 mmol/L (7.35-7.45); ABG PO2 63.1 mmhg (80-100); ABG TCO2 36.8 mmhg (23-27)
[2019-02-12 09:28] LABS: Oxygen 3 LPM NC %
[2019-02-12 09:29] LABS: Allen's Test Acceptable
[2019-02-12 09:30] LABS: ABG PCO2 60.9 mmhg (35.0-45.0)
[2019-02-13 06:44] LABS: Basophils % 0.1 % (0.1-2.0); Eosinophils % 0.3 % (0.1-12.0); Hematocrit 40.4 % (37.0-47.0); Hemoglobin 12.9 g/dL (12.2-16.2); Lymphocytes # 0.8 K/mm3 (0.7-4.5); Mean Corpuscular Hemoglobin 30.8 pg (27.0-31.2); Mean Corpuscular Volume 96.1 fl (81-99); Mean Platelet Volume 7.6 fl (7.4-10.4); Monocytes # 0.3 K/mm3 (0.1-1.0); Neutrophils # 4.2 K/mm3 (1.8-7.8); Neutrophils % 79.5 % (37.0-80.0); Platelet Count 201 K/mm3 (142-424); Red Blood Count 4.21 M/mm3 (4.20-5.40); Red Cell Distribution Width 12.8 % (11.5-17.5); White Blood Count 5.3 K/mm3 (4.8-10.8)
[2019-02-13 06:59] LABS: Anion Gap 4.1 mEq/L (5-15); Calcium 9.1 mg/dL (8.5-10.1); Potassium 4.1 mmoL/L (3.5-5.1)
--- NOTE | 2019-02-13 09:15 | Progress Note ---
Internal Medicine - PN: Subj *Date: 02/13/19 *Time: 09:14 Interval history: doing better with trilogy Exam Vital signs and Labs for Last 24 Hours: Temp Pulse Resp BP Pulse Ox 98.3 F 85 21 137/79 92 L 02/13/19 08:00 02/13/19 08:00 02/13/19 08:00 02/13/19 08:00 02/13/19 08:00 Laboratory Results - last 24 hr 02/12/19 09:20: Specimen Source Left radial, O2 % 3 lpm nc, ABG pH 7.38, ABG pCO2 60.9 H, ABG pO2 63.1 L, ABG HCO3 35.0 H, ABG Total CO2 36.8 H, ABG O2 Saturation 92, ABG Base Excess 9.8 H, Leo Test Acceptable 02/13/19 06:16: WBC 5.3, RBC 4.21, Hgb 12.9, Hct 40.4, MCV 96.1, MCH 30.8, MCHC 32.0, RDW 12.8, Plt Count 201, MPV 7.6, Neut % (Auto) 79.5, Lymph % (Auto) 15.0, [place] % (Auto) 5.0, Eos % (Auto) 0.3, Baso % (Auto) 0.1, Neut # (Auto) 4.2, Lymph # (Auto) 0.8, [place] # (Auto) 0.3, Eos # (Auto) 0.0, Baso # (Auto) 0.0 02/13/19 06:16: Sodium 141, Potassium 4.1, Chloride 103, Carbon Dioxide 38 H, Anion Gap 4.1 L, BUN 11, Creatinine 0.54 L, Estimated Creat Clear 140, Estimated GFR 120, Est GFR ( Amer) 146, Glucose 132 H, Calcium 9.1 I & O for Last 24 hours: Intake & Output 02/10/19 02/11/19 02/12/19 02/13/19 11:59 11:59 11:59 11:59 Intake Total 1300 / 1300 3534 / 3534 3268 / 3268 1819 / 1819 Output Total 600 / 600 1100 / 1100 4800 / 4800 1999 / 1999 Balance 700 / 700 2434 / 2434 -1532 / -1532 -181 / -181 Weight 144 lb 4 oz 145 lb 3 oz 151 lb 9 oz 153 lb Microbiology Reports for the Last 24 Hours: Microbiology 02/10/19 08:00 Sputum - Expectorated Sputum Gram Stain - Final 02/10/19 08:00 Sputum - Expectorated Sputum Sputum Culture - Final Normal Respiratory Carly - Constitutional no acute distress - *Routine HEENT Exam Head: Present: normocephalic Eye: Present: EOMI, PERRL ENT: Present: mucous membranes dry - *Routine Neck Exam Present: supple - *Routine Respiratory Exam Present: wheezes, distant breath sounds - *Routine Cardiovascular Exam Present: RRR - *Routine Abdominal Exam Present: soft - *Routine Extremities Exam Absent: calf tenderness - *Routine Skin Exam Present: intact - *Routine Neurological Exam Present: alert, CN II-XII intact - Routine Psychiatric Exam Present: normal affect Assessment and Plan (1) COPD (chronic obstructive pulmonary disease) with acute bronchitis Current visit: Yes Status: Acute Category: Medical Code(s): J44.0 - Chronic obstructive pulmonary disease with acute lower respiratory infection; J20.9 - Acute bronchitis, unspecified (2) COPD exacerbation Current visit: Yes Status: Acute Category: Medical Code(s): J44.1 - Chronic obstructive pulmonary disease with (acute) exacerbation (3) Tobacco use Current visit: Yes Status: Acute Category: Medical Code(s): Z72.0 - Tobacco use
--- NOTE | 2019-02-14 09:14 | Progress Note ---
Internal Medicine - PN: Subj *Date: 02/14/19 *Time: 09:11 Interval history: doing better with triology Exam Vital signs and Labs for Last 24 Hours: Temp Pulse Resp BP Pulse Ox 97.4 F L 82 22 111/62 92 L 02/14/19 08:00 02/14/19 08:00 02/14/19 08:00 02/14/19 08:00 02/14/19 08:00 I & O for Last 24 hours: Intake & Output 02/11/19 02/12/19 02/13/19 02/14/19 11:59 11:59 11:59 11:59 Intake Total 3534 / 3534 3268 / 3268 1819 / 1819 720 / 720 Output Total 1100 / 1100 4800 / 4800 2300 / 2300 1300 / 1300 Balance 2434 / 2434 -1532 / -1532 -481 / -481 -580 / -580 Weight 145 lb 3 oz 151 lb 9 oz 153 lb 152 lb - Constitutional no acute distress - *Routine HEENT Exam Head: Present: normocephalic Eye: Present: EOMI, PERRL ENT: Present: mucous membranes dry - *Routine Neck Exam Present: supple - *Routine Respiratory Exam Present: rhonchi - *Routine Cardiovascular Exam Present: RRR, murmur, S3 - *Routine Abdominal Exam Present: soft - *Routine Extremities Exam Absent: calf tenderness - *Routine Skin Exam Present: intact - *Routine Neurological Exam Present: alert, oriented X3, CN II-XII intact - Routine Psychiatric Exam Present: normal affect Assessment and Plan (1) COPD (chronic obstructive pulmonary disease) with acute bronchitis Current visit: Yes Status: Acute Category: Medical Code(s): J44.0 - Chronic obstructive pulmonary disease with acute lower respiratory infection; J20.9 - Acute bronchitis, unspecified (2) COPD exacerbation Current visit: Yes Status: Acute Category: Medical Code(s): J44.1 - Chronic obstructive pulmonary disease with (acute) exacerbation (3) Tobacco use Current visit: Yes Status: Acute Category: Medical Code(s): Z72.0 - Tobacco use
--- NOTE | 2019-02-15 12:24 | Consult Report ---
History of Present Illness Consult date: 02/15/19 Requesting physician: Milton Machuca Consult reason: shortness of breath Chief complaint: SOA Additional Medical History:: 1. COPD, on chronic oxygen therapy A. On disability since [address] a of the chest 02/2019,1. No evidence of pulmonary embolus, aortic aneurysm, or aortic dissection. 2. Centrilobular and paraseptal emphysema with COPD. 3. Diffuse faint reticular nodular opacities and small groundglass opacities are noted in the lung bases. These findings are nonspecific and could be related to developing interstitial pneumonitis either acute or chronic. An infectious process is an additional consideration. Follow-up is suggested C. Tobacco use, discontinued August 2018 2. Anxiety 3. Echo, 01/2019, 1. Normal left atrial size, normal left ventricular size, hyperdynamic left ventricular systolic function, visually estimated ejection fraction over 65% with no regional wall motion abnormality, diastolic parameters are inconclusive. 2. Mildly enlarged right ventricle with normal contractility. 3. Mild mitral and tricuspid regurgitation 4. No significant pericardial effusion noted History of present illness: 48-year-old white female with significant COPD for which she is on chronic oxygen therapy and permanent disability presented to the emergency department last week due to increasing shortness of breath despite aggressive outpatient therapy. During the course of her stay patient's respiratory status has improved but not quite back to her baseline. She relates left-sided chest discomfort mainly with coughing or deep breathing. Patient denies any previous cardiac history and denies history of treatment for hypertension hyperlipidemia. Cardiac enzymes have returned normal on admission and one drawn yesterday during this hospitalization. Echocardiogram last week shows normal ejection fraction without significant valvular heart disease. Cardiology consulted for evaluation recommendations. [facility] History Medical History: Reports:: Anxiety, Chronic Obstructive Pulmonary Disease (COPD), Depression Denies:: Cancer, Diabetes Mellitus Type 1, Diabetes Mellitus Type 2, MRSA *Have you ever received a pneumonia vaccine?: Yes *Have you received a flu vaccine this season?: Yes Laterality Cases: Bilateral: Tonsillectomy Other Surgeries: Yes: Appendectomy, Hernia Repair, Hysterectomy-Total, Hysterectomy-Partial, Other Amputation: No Fractures: No - *Social History Educational Level: Completed High School Smoking Status: Former smoker Tobacco Type: cigarettes # Packs/Day (cigarettes): 1 Alcohol Intake: former Alcohol Intake Frequency:: holidays/special occasions only Substance Use Type: marijuana Last Used Substance: unknown *Occupational Status:: disabled Housing: house Household Members: family *Travel in the last 8 weeks: None - Psychiatric History Expresses thoughts of harming self/others: None Suicide Plan Description: No Plan Pschychiatric History:: Reports:: Anxiety, Depression Family Hx:: Cancer, Heart Attack, Diabetes, Hypertension, Thyroid Disorder, Stroke Meds Home Medications Medication Instructions Recorded Confirmed Type Albuterol Sulfate [Ventolin HFA] 2 puff INHALATION Q6H PRN 02/09/19 02/09/19 History Escitalopram Oxalate 10 mg PO DAILY 02/09/19 02/10/19 History Fluticasone/Umeclidin/Vilanter 1 puff INHALATION DAILY 02/09/19 02/10/19 History [Trelegy Ellipta] Montelukast Sodium [Singulair] 10 mg PO HS 02/09/19 02/10/19 History diazePAM [Valium] 5 mg PO BID 02/09/19 02/10/19 History Allergies Allergy/AdvReac Type Severity Reaction Status Date / Time No Known Allergies Allergy Verified 02/09/19 12:05 Review of Systems - *Cardiovascular Reports chest pain, Reports shortness of breath, Reports shortness of breath with activity - *Respiratory Reports cough, Reports shortness of breath, Reports shortness of breath with activity - *Gastrointestinal Denies abdominal pain, Denies loose stools, Denies black, tarry stools - *Genitourinary Denies blood in urine - *Musculoskeletal Denies joint pain, Denies back pain - *Neurologic Reports weakness, Denies seizure-like activity Exam Vital signs and Labs for Last 24 Hours: Temp Pulse Resp BP Pulse Ox 98.0 F 109 H 18 149/89 H 90 L 02/15/19 11:47 02/15/19 11:47 02/15/19 11:47 02/15/19 11:47 02/15/19 11:47 Laboratory Results - last 24 hr 02/14/19 20:42: Troponin I < 0.02 I & O for Last 24 hours: Intake & Output 02/13/19 02/14/19 02/15/19 02/16/19 11:59 11:59 11:59 11:59 Intake Total 1819 / 1819 1040 / 1040 960 / 960 Output Total 2300 / 2300 2150 / 2150 1000 / 1000 Balance -481 / -481 -1110 / -1110 -40 / -40 Weight 153 lb 152 lb Microbiology Reports for the Last 24 Hours: Microbiology 02/09/19 12:08 Blood Blood Culture - Final NO GROWTH AFTER 5 DAYS 02/09/19 12:08 Blood Blood Culture - Final NO GROWTH AFTER 5 DAYS - *Routine HEENT Exam Head: Present: normocephalic Eye: Present: EOMI, PERRL ENT: Present: mucous membranes moist - *Routine Neck Exam Present: supple. Absent: JVD, carotid bruit - *Routine Respiratory Exam Present: decreased breath sounds, crackles, diminished air movement. Absent: accessory muscle use, rales, rhonchi, wheezes - *Routine Cardiovascular Exam Present: RRR. Absent: murmur, gallop, rubs - *Routine Abdominal Exam Present: soft. Absent: tenderness, distended, guarding - *Routine Extremities Exam Absent: edema, calf tenderness - *Routine Neurological Exam Present: alert, oriented X3, moving all extremities Assessment and Plan (1) COPD (chronic obstructive pulmonary disease) with acute bronchitis Current visit: Yes Status: Acute Category: Medical Code(s): J44.0 - Chronic obstructive pulmonary disease with acute lower respiratory infection; J20.9 - Acute bronchitis, unspecified (2) COPD exacerbation Current visit: Yes Status: Acute Category: Medical Code(s): J44.1 - Chronic obstructive pulmonary disease with (acute) exacerbation (3) Tobacco use Current visit: Yes Status: Acute Category: Medical Code(s): Z72.0 - Tobacco use - Assessment and plan all Dx Assessment and Plan for all problems:: 1. Noncardiac chest pain, aggravated by deep breathing and coughing with normal troponins and normal left ventricular ejection fraction. Patient has previously been seen in prior hospitalizations with recommendation for cardiac stress testing as an outpatient when her lungs were improved. I would reiterate this recommendation at this time as the patient would not be able to walk significantly on a treadmill and would likely not tolerate Lexiscan infusion at this time. 2. Patient does have significant COPD and might benefit from right heart catheterization in the future, but would like to get recommendation from her carbide die maker, Dr. Stoner, after her next appointment in early March. 3. A trial of diuretic therapy for pulmonary hypertension/diastolic dysfunction while she is in the hospital might be worthwhile, although patient states she has not noticed any significant improvement in her shortness of breath when she has been on diuretics in the past.
--- NOTE | 2019-02-15 13:38 | Progress Note ---
Internal Medicine - PN: Subj *Date: 02/15/19 *Time: 13:37 Interval history: doing slowly better - will have echo and card consult Exam Vital signs and Labs for Last 24 Hours: Temp Pulse Resp BP Pulse Ox 98.0 F 109 H 18 149/89 H 90 L 02/15/19 11:47 02/15/19 11:47 02/15/19 11:47 02/15/19 11:47 02/15/19 11:47 Laboratory Results - last 24 hr 02/14/19 20:42: Troponin I < 0.02 I & O for Last 24 hours: Intake & Output 02/13/19 02/14/19 02/15/19 02/16/19 11:59 11:59 11:59 11:59 Intake Total 1819 / 1819 1040 / 1040 960 / 960 Output Total 2300 / 2300 2150 / 2150 1000 / 1000 Balance -481 / -481 -1110 / -1110 -40 / -40 Weight 153 lb 152 lb Microbiology Reports for the Last 24 Hours: Microbiology 02/09/19 12:08 Blood Blood Culture - Final NO GROWTH AFTER 5 DAYS 02/09/19 12:08 Blood Blood Culture - Final NO GROWTH AFTER 5 DAYS - Constitutional no acute distress - *Routine HEENT Exam Head: Present: normocephalic Eye: Present: EOMI, PERRL ENT: Present: mucous membranes dry - *Routine Neck Exam Present: supple - *Routine Respiratory Exam Present: decreased breath sounds, wheezes - *Routine Cardiovascular Exam Present: RRR, murmur, S4 - *Routine Abdominal Exam Present: soft - *Routine Extremities Exam Absent: calf tenderness - *Routine Skin Exam Present: intact - *Routine Neurological Exam Present: alert, CN II-XII intact - Routine Psychiatric Exam Present: normal affect Assessment and Plan (1) COPD (chronic obstructive pulmonary disease) with acute bronchitis Current visit: Yes Status: Acute Category: Medical Code(s): J44.0 - Chronic obstructive pulmonary disease with acute lower respiratory infection; J20.9 - Acute bronchitis, unspecified (2) COPD exacerbation Current visit: Yes Status: Acute Category: Medical Code(s): J44.1 - Chronic obstructive pulmonary disease with (acute) exacerbation (3) Tobacco use Current visit: Yes Status: Acute Category: Medical Code(s): Z72.0 - Tobacco use
--- NOTE | 2019-02-16 08:32 | Discharge Summary ---
General - General Admission date:: 02/09/19 Discharge date: 02/16/19 HPI HPI: this wf has o2 dep copd and was seen by pcp and treated as op and somewhat improved but continued to have prod cough and progressive sob and fatigue - pt was referred to ed as she had failed op treatment - nt from the office of Dr. Machuca, where the patient was seen by Hilton Zepeda She says she has been short of breath since Friday 4 days ago. She has a cough producing "nasty sputum". She says it is also in her head with nasal congestion, nasal drainage, postnasal drip. Denies sore throat. She has had a fever. She says she was seen on the of this month by her primary care providers. Treated with an injection of steroids and antibiotics and oral Z-Brian and steroids. She says she does not think she ever got over it completely. She has COPD. She is on oxygen continuously at home and uses a nebulizer. Last nebulizer treatment at 5 AM. Used her rescue inhaler twice while taking a shower at about 9am. States she quit smoking about 2 months ago. pt was admitted for ivf and abx and steroids and resp treatment Hospital Course Hospital Course: echo:CONCLUSION: 1. Normal left atrial size, normal left ventricular size, hyperdynamic left ventricular systolic function, visually estimated ejection fraction over 65% with no regional wall motion abnormality, diastolic parameters are inconclusive. 2. Mildly enlarged right ventricle with normal contractility. 3. Mild mitral and tricuspid regurgitation 4. No significant pericardial effusion noted. cta:IMPRESSION: 1. No evidence of pulmonary embolus, aortic aneurysm, or aortic dissection. 2. Centrilobular and paraseptal emphysema with COPD. 3. Diffuse faint reticular nodular opacities and small groundglass opacities are noted in the lung bases. These findings are nonspecific and could be related to developing interstitial pneumonitis either acute or chronic. An infectious process is an additional consideration. Follow-up is suggested. chest x ray:IMPRESSION: COPD, no change with no acute finding Patient admitted treated with IV antibiotics and IV fluids. Cardiology consult obtained see note.patient developed increased shortness of breath IV Lasix given and diuresed but patient states she did not see any difference after diuresing with her shortness of breath. Patient was started on trilogy states improved her breathing tremendously. Today patient sitting up eating breakfast states she feels great will discharge home on a slow taper of steroids. As outpatient patient will need more cardiac work-up. Objective Vital signs: Temp Pulse Resp BP Pulse Ox 98.5 F 85 18 104/70 L 91 L 02/16/19 04:00 02/16/19 06:04 02/16/19 04:00 02/16/19 04:00 02/16/19 06:04 no acute distress - *Routine HEENT Exam Head: Present: normocephalic Eye: Present: PERRL ENT: Present: mucous membranes moist - *Routine Respiratory Exam Present: CTA bilaterally - *Routine Cardiovascular Exam Present: RRR - *Routine Abdominal Exam Present: soft, normoactive bowel sounds - *Routine Extremities Exam Present: full ROM - Routine Back/Spine/Pelvis Exam Back/Spine: Present: full ROM - *Routine Skin Exam Present: intact - *Routine Neurological Exam Present: alert, oriented X3 - Routine Psychiatric Exam Present: normal affect Results - Additional Comments Rounded with Dr. Machuca all orders per Sven DS: Diagnosis - Discharge Diagnosis (1) COPD (chronic obstructive pulmonary disease) with acute bronchitis Status: Acute (2) COPD exacerbation Status: Acute (3) Tobacco use Status: Acute Discharge Plan - Patient Discharge Instructions ACTIVITY: Continue current activity DIET: continue same diet Patient Instructions: DI for Chronic Obstructive Pulmonary Disease - Follow up Plan Follow up with: Hilton Zepeda APRN [Nurse Practitioner] - 1 week Disposition: Home, [facility] Medications: Home Medications Medication Instructions Recorded Confirmed Type Albuterol Sulfate [Ventolin HFA] 2 puff INHALATION Q6H PRN 02/09/19 02/09/19 History Escitalopram Oxalate 10 mg PO DAILY 02/09/19 02/10/19 History Fluticasone/Umeclidin/Vilanter 1 puff INHALATION DAILY 02/09/19 02/10/19 History [Trelegy Ellipta] Montelukast Sodium [Singulair] 10 mg PO HS 02/09/19 02/10/19 History diazePAM [Valium] 5 mg PO BID 02/09/19 02/10/19 History predniSONE [Prednisone 20mg 10 mg PO BID 12 Days #24 tab 02/16/19 Rx Tab] Prescriptions/Medication Reconciliation: New predniSONE [Prednisone 20mg Tab] 10 mg PO BID 12 Days #24 tab Continued Montelukast Sodium [Singulair] 10 mg PO HS Escitalopram Oxalate 10 mg PO DAILY diazePAM [Valium] 5 mg PO BID Albuterol Sulfate [Ventolin HFA] 2 puff INHALATION Q6H PRN PRN Reason: Shortness Of Breath Fluticasone/Umeclidin/Vilanter [Trelegy Ellipta] 1 puff INHALATION DAILY
== END 2019-02-16 09:24 | disposition home or self-care (01) ==
LOC: 2ND 11:55 → ER 11:55 → 2ND 14:41
PROVIDERS: ADMIT Emergency Medicine; ATTEND Emergency Medicine
CPT/HCPCS: 36415; 71020; 71046; 71275; 80048; 80053; 82803; 83605; 83735; 84484; 85007; 85025; 87040; 87070; 87205; 93306; 94640; 94761; 96365; 96375; 99284; G0378; J1956; Q9967

== ENCOUNTER 2019-03-30 13:03 | Outpatient (RCR) | payer MEDICARE, SELFPAY | END 2019-05-28 15:33 | disposition home or self-care (01) | LOC: PT 13:03 | PROVIDERS: Visit Provider Internal Medicine | DX: J44.9 Chronic obstructive pulmonary disease, unspecified (principal) | CPT/HCPCS: G0424 ==

== ENCOUNTER → 2020-04-19 13:01 | Outpatient (CLI) | payer MEDICARE, SELFPAY ==
--- NOTE | 2020-04-19 13:01 | MM_ITS ---
PROCEDURE: MM DIG SCREENING MAMM BI W/CAD DIGITAL BREAST TOMOSYNTHESIS INCLUDED Patient Age:49Y CLINICAL INDICATION: screening. Prior hysterectomy 2002 no hormones. No new complaints. Family history maternal aunt with breast cancer COMPARISON: MM MAMMO DIGITAL DIAGNOSTIC W CAD BILAT from 02/24/2013 [facility] DIG MAMM-SCREEN ANGELICA from 12/30/2014 [facility] DIG MAMM-SCREEN ANGELICA W/CAD from 06/26/2017 TECHNIQUE: Standard CC and MLO images were obtained. R2 CAD reviewed. Bilateral digital breast tomosynthesis included. Additional CC views both breast FINDINGS: Dense breast tissue bilaterally in this patient decrease sensitivity in mammography even with the additional tomosynthesis. However the dense glandular tissue appears similar in distribution and appearance to previous studies. No new dominant or suspicious mass either breast. No evident architectural distortion. No suspicious calcifications. A few scattered benign calcifications observed.. Bilateral follow-up 1 year recommended IMPRESSION: Stable bilateral mammogram. Dense breast but with no new areas of concern Bilateral follow-up 1 year recommended BI-RAD Category: 2 Benign Finding(s) FOLLOW-UP: 1YR 1 Year Follow-up (A letter has been sent to the patient regarding results of the study.) Dictated by: Abhilash Byers MD 04/22/2020 09:08 Electronically signed by Abhilash Byers MD in [place] 04/22/2020 09:08
== END ==
PROVIDERS: PCP Emergency Medicine; Visit Provider Emergency Medicine
DX: Z12.31 Encounter for screening mammogram for malignant neoplasm of breast (principal)
CPT/HCPCS: 77063; 77067

== ENCOUNTER → 2020-05-30 17:40 | Outpatient (CLI) | payer MEDICARE, SELFPAY ==
[2020-05-30 22:11] LABS: Coronavirus 19 IgG Antibody Negative (Negative); Coronavirus 19 IgM Antibody Negative (Negative)
== END ==
PROVIDERS: Visit Provider Emergency Medicine
DX: Z01.84 Encounter for antibody response examination (principal)
CPT/HCPCS: 86328

== ENCOUNTER → 2020-12-27 11:42 | Outpatient (CLI) | payer MEDICARE, SELFPAY ==
[2020-12-27 16:48] LABS: Occult Blood,Stool Negative (Negative)
== END ==
PROVIDERS: Visit Provider Nurse Practitioner Family
DX: R19.7 Diarrhea, unspecified (principal); Z20.822 Contact with and (suspected) exposure to COVID-19
CPT/HCPCS: 82272; 87506; G0328; U0003

== ENCOUNTER 2021-04-18 15:49 | Observation (INO) | payer MEDICARE, SELFPAY ==
[2021-04-18] VITALS (7 sets, daily range): BP systolic 111–132; BP diastolic 55–66; PULSE 85–114; RESP 16–22; TEMP 36.8–36.9; O2SAT 81–92; BMI 20.3; BMI 20.4
--- NOTE | 2021-04-18 16:10 | ECG_ITS ---
APPROVED REPORT Exam: Resting ECG HR:89 bpm ECG Measurements Heart Rate 89 AXES [place] 144 P 74 QRSd 72 QRS 75 QT 314 T 51 QTc 382 Conclusion Normal sinus rhythm Late R wave progression, unchanged from prior Abnormal ECG Electronically signed by : Gage Duarte, 04/19/2021 17:43:26
--- NOTE | 2021-04-18 16:20 | XR_ITS ---
PROCEDURE INFORMATION: Exam: XR Chest Exam date and time: 04/18/2021 4:20 PM Age: 50 years old Clinical indication: Shortness of breath; Patient HX: SOA TECHNIQUE: Imaging protocol: XR of the chest. Views: 1 view. COMPARISON: CR XR CHEST PORTABLE 01/07/2020 4:00 PM FINDINGS: Lungs: Chronic pulmonary hyperinflation. Chronic calcified right lower pulmonary granuloma. Likely emphysematous changes greatest in the right upper lobe. No focal consolidation. Pleural spaces: Unremarkable. No significant pleural effusion. No pneumothorax. Heart/Mediastinum: The cardiac silhouette is normal. Bones/joints: Spinal degenerative changes with mild thoracolumbar scoliosis and spondylosis. IMPRESSION: 1. Chronic findings of COPD, with pulmonary hyperinflation, emphysematous changes, and chronic granulomatous change. 2. No focal consolidation.
--- NOTE | 2021-04-18 16:35 | PC.NURSE ---
RESPIRATORY NOTIFIED BREATHING TREATMENT
--- NOTE | 2021-04-18 16:35 | PC.NURSE ---
RT at bedside
[2021-04-18 16:44] LABS: Chloride 96 mmol/L (98-107); Potassium 3.9 mmoL/L (3.5-5.1); Sodium 142 mmol/L (136-145)
[2021-04-18 16:45] LABS: Basophils # 0.1 K/mm3 (0-0.2); Basophils % 1.2 % (0.1-2.0); Eosinophils # 0.7 K/mm3 (0.0-0.4); Hematocrit 44.9 % (37.0-47.0); Hemoglobin 14.5 g/dL (12.2-16.2); Lymphocytes # 2.2 K/mm3 (0.7-4.5); Lymphocytes % 32.6 % (10-50); Mean Corpuscular HGB Conc 32.4 g/dL (31.8-35.4); Mean Corpuscular Volume 95.7 fl (81-99); Mean Platelet Volume 8.6 fl (7.4-10.4); Monocytes # 0.3 K/mm3 (0.1-1.0); Monocytes % 4.5 % (1.7-9.3); Neutrophils # 3.4 K/mm3 (1.8-7.8); Neutrophils % 50.8 % (37.0-80.0); Platelet Count 210 K/mm3 (142-424); Red Blood Count 4.69 M/mm3 (4.20-5.40); Red Cell Distribution Width 13.2 % (11.5-17.5); White Blood Count 6.7 K/mm3 (4.8-10.8)
[2021-04-18 16:46] LABS: Alanine Aminotransferase 13 U/L (12-78); Alkaline Phosphatase 114 U/L (38-126); Anion Gap 10.9 mEq/L (5-15); Aspartate Amino Transferase 25 U/L (14-36); Bilirubin,Total 0.3 mg/dl (0.2-1.3); Blood Urea Nitrogen 11 mg/dl (7-17); Carbon Dioxide 39 mmol/L (22.0-30.0); Creatinine Clearance Estimated 104 mL/min (50-200); Estimated Glomerular Filt Rate 106 ml/min (>60); GFR (African American) 128 ML/MIN (>60)
[2021-04-18 16:47] LABS: Albumin Level 4.9 g/dl (3.5-5.0); Albumin/Globulin Ratio 1.6 (1.1-1.8); Calcium 9.4 mg/dl (8.4-10.2); Glucose 98 mg/dl (74-100); Total Protein,Serum 7.9 g/dl (6.3-8.2)
[2021-04-18 16:51] LABS: Lactic Acid 0.9 mmol/L (0.7-2.1)
--- NOTE | 2021-04-18 16:51 | PC.NURSE ---
rad at BS for portable xray
--- NOTE | 2021-04-18 16:53 | PC.NURSE ---
pt getting neb treatment
[2021-04-18 17:03] LABS: Troponin I < 0.01 ng/ml (0.00-0.034)
[2021-04-18 17:07] LABS: ABG Base Excess 6.3 mmol/L (-2.4-2.3); ABG HCO3 32.5 mmhg (22.0-26.0); ABG Oxygen Saturation 90 % (90-100); ABG PH 7.32 mmol/L (7.35-7.45); ABG PO2 54.3 mmhg (80-100); ABG TCO2 34.5 mmhg (23-27)
[2021-04-18 17:08] LABS: Allen's Test Acceptable; Oxygen 3LPM %; Source Left Radial
[2021-04-18 17:09] LABS: ABG PCO2 65.1 mmhg (35.0-45.0)
--- NOTE | 2021-04-18 17:20 | HMH.EDSOB ---
ED Disposition Clinical Impression: Acute exacerbation of chronic obstructive airways disease, Tobacco use, SIRS (systemic inflammatory response syndrome) Disposition: Admitted As Inpatient Condition on Discharge: Fair - Critical Care Critical Care Time: No Attestation: On 04/18/21, the high probability of a clinically significant, sudden or life threatening deterioration of the following system(s) required my full and direct attention, intervention and personal management. The time I documented below is in addition to time spent performing reported procedures but includes the following listed in this critical care notation. Medical Decision Making - Medical Records Medical records reviewed: Yes: I reviewed the patient's medical records. - Anurag Inquiry Pt receiving controlled substance: No Vital Signs: 04/18/21 15:50 04/18/21 18:34 Temperature 98.4 F Temperature Source Oral Pulse Rate 106 H Pulse Rate [Right] 110 H Respiratory Rate 22 Blood Pressure [Right Arm] 132/66 Blood Pressure Mean [Right Arm] 88 02 Sat by Pulse Oximetry 90 L Oxygen Delivery Method Room Air Oxygen Flow Rate (LPM) 4 - Lab Data Lab results reviewed: Yes: I reviewed the patient's lab results. Lab Results 04/18/21 16:20: WBC 6.7, RBC 4.69, Hgb 14.5, Hct 44.9, MCV 95.7, MCH 31.0, MCHC 32.4, RDW 13.2, Plt Count 210, MPV 8.6, Neut % (Auto) 50.8, Lymph % (Auto) 32.6, Mcmullen % (Auto) 4.5, Eos % (Auto) 11.0, Baso % (Auto) 1.2, Neut # (Auto) 3.4, Lymph # (Auto) 2.2, Mcmullen # (Auto) 0.3, Eos # (Auto) 0.7 H, Baso # (Auto) 0.1 04/18/21 16:20: Sodium 142, Potassium 3.9, Chloride 96 L, Carbon Dioxide 39 H, Anion Gap 10.9, BUN 11, Creatinine 0.60, Estimated Creat Clear 104, Estimated GFR 106, Est GFR ( Amer) 128, Glucose 98, Calcium 9.4, Total Bilirubin 0.3, AST 25, ALT 13, Alkaline Phosphatase 114, Troponin I < 0.01, Total Protein 7.9, Albumin 4.9, Globulin 3.0, Albumin/Globulin Ratio 1.6 04/18/21 16:20: Lactate 0.9 04/18/21 16:25: Urine Color Yellow, Urine Appearance Sl cloudy, Urine pH 7.0, Ur Specific [place] 1.015, Urine Protein Negative, Urine Glucose (UA) Negative, Urine Ketones Negative, Urine Blood Negative, Urine Nitrate Negative, Urine Bilirubin Negative, Urine Urobilinogen >=8.0, Ur Leukocyte Esterase Trace, Urine RBC Occasional, Urine WBC 5-10, Ur Squamous Epith Cells Occasional, Urine Bacteria 1+ 04/18/21 16:29: Specimen Source Left radial, O2 % 3lpm, ABG pH 7.32 L, ABG pCO2 65.1 H, ABG pO2 54.3 L, ABG HCO3 32.5 H, ABG Total CO2 34.5 H, ABG O2 Saturation 90, ABG Base Excess 6.3 H, Leo Test Acceptable 04/18/21 17:30: SARS-CoV-2 (PCR) Not detected, Influenza A Untype (PCR) Not detected, Influenza Type B (PCR) Not detected Result diagrams: 04/18/21 16:20 04/18/21 16:20 Orders (Tests/Meds): ED MEDICATIONS Generic Name Dose Route Start Last Admin Trade Name Freq PRN Reason Stop Dose Admin Levofloxacin/Dextrose 500 mg in 100 mls @ 100 mls/hr 04/18/21 17:30 04/18/21 17:46 Levaquin 500mg/100ml Premix IV 05/02/21 17:29 100 mls/hr Q24H LORIE Administration Protocol Levalbuterol HCl 1.25 mg 04/18/21 17:29 04/18/21 18:32 Levalbuterol 1.25mg/3ml [facility] 05/18/21 17:28 1.25 mg TIDP PRN Administration Shortness Of Breath Sodium Chloride 3 ml 04/18/21 17:30 Sodium Chloride 3% 15ml [facility] 05/18/21 17:29 ONCE PRN INDUCE SPUTUM COLLECTION Discontinued Medications Generic Name Dose Route Start Last Admin Trade Name Freq PRN Reason Stop Dose Admin Albuterol/Ipratropium 3 ml 04/18/21 16:20 04/18/21 16:40 Ipratropium/Albuterol 3 Ml [facility] 04/18/21 16:21 3 ml ONCE ONE Administration Sodium Chloride 1,000 mls @ 999 mls/hr 04/18/21 16:30 04/18/21 16:29 Sod Chlor 0.9% 1000ml Bag IV 04/18/21 17:30 999 mls/hr .Q1H1M LORIE Administration Methylprednisolone Sodium Succinate 125 mg 04/18/21 16:20 04/18/21 16:29 Methylprednisolone Sod Succ 125mg Vial IV 04/18/21 16:21 1
[2021-04-18 17:24] LABS: Microscopic, Urine URINE MICROSCOPIC (MICROSCOPIC)
[2021-04-18 17:35] LABS: Appearance,Urine SL CLOUDY (Clear); Bilirubin,Urine Negative (Negative); Blood, Urine Negative (Negative); Color,Urine YELLOW (Yellow); Glucose,Urine (UA) Negative (Negative); Ketones,Urine Negative (Negative); Leukocyte Esterase,Urine TRACE (Negative); Nitrate,Urine Negative (Negative); Protein,Urine Negative (Negative); Specific Gravity, Urine 1.015 (1.005-1.030); Urobilinogen,Urine >=8.0 EU/dl (0.2)
[2021-04-18 17:48] LABS: Coronavirus 19, PCR Not Detected (NotDetected); Influenza A, PCR Not Detected (NotDetected); Influenza B, PCR Not Detected (NotDetected)
--- NOTE | 2021-04-18 17:49 | PC.NURSE ---
RESPIRATORY AWARE OF XOFENEX TREATMENT
[2021-04-18 17:57] LABS: Bacteria,Urine 1+ /lpf; RBC,Urine Occasional #/hpf (0-3); Squamous Epithelial Cell,Urine Occasional #/hpf (0-5)
--- NOTE | 2021-04-18 19:21 | PC.NURSE ---
ATTEMPTED TO CALL REPORT TO MARLON CASTREJON BUT SHE WAS TAKING REPORT ON OTHERS PATIENTS. MARLON REPORTS SHE WILL CALL ME BACK
--- NOTE | 2021-04-18 19:25 | PC.NURSE ---
report called to Myranda CASTREJON at this time
--- NOTE | 2021-04-18 19:42 | PC.NURSE ---
patient up to floor via wheelchair.
[2021-04-18 20:31] LABS: Troponin I < 0.01 ng/ml (0.00-0.034)
--- NOTE | 2021-04-18 22:04 | PC.NURSE ---
She is A&Ox4. She reports having a headache of which she stated she had previously taken acetaminophen for. She ambulates independently and turns herself in the bed. She reports her last BM was on 04/17/21. She has a non-productive cough. She continues on 3LPM n/c. She reports that she does not have a mental health orderly.
[2021-04-18 22:55] LABS: Troponin I < 0.01 ng/ml (0.00-0.034)
[2021-04-19] VITALS (8 sets, daily range): BP systolic 96–128; BP diastolic 50–73; PULSE 60–116; RESP 17–20; TEMP 36.4–36.8; O2SAT 3–95; BMI 21.0
[2021-04-19 06:45] LABS: Basophils % 0.1 % (0.1-2.0); Eosinophils % 0.8 % (0.1-12.0); Hematocrit 39.5 % (37.0-47.0); Lymphocytes # 0.4 K/mm3 (0.7-4.5); Lymphocytes % 10.9 % (10-50); Mean Corpuscular HGB Conc 32.4 g/dL (31.8-35.4); Mean Corpuscular Hemoglobin 31.3 pg (27.0-31.2); Mean Corpuscular Volume 96.6 fl (81-99); Mean Platelet Volume 8.9 fl (7.4-10.4); Monocytes # 0.1 K/mm3 (0.1-1.0); Monocytes % 2.3 % (1.7-9.3); Neutrophils # 3.4 K/mm3 (1.8-7.8); Neutrophils % 85.9 % (37.0-80.0); Platelet Count 200 K/mm3 (142-424); Red Blood Count 4.09 M/mm3 (4.20-5.40); Red Cell Distribution Width 13.2 % (11.5-17.5); White Blood Count 3.9 K/mm3 (4.8-10.8)
[2021-04-19 06:55] LABS: MANUAL DIFFERENTIAL MANUAL DIFFERENTIAL (MANUAL DIFF)
[2021-04-19 06:56] LABS: Hemoglobin 12.8 g/dL (12.2-16.2)
[2021-04-19 07:10] LABS: Lymphocytes % 13 % (10-50); Monocytes % 4 % (2-9); Neutrophils % 83 % (42-76); Platelet Estimate Normal; RBC Morphology Normal; Total Cells Counted 100
[2021-04-19 07:27] LABS: Anion Gap 10.6 mEq/L (5-15); Blood Urea Nitrogen 12 mg/dl (7-17); Carbon Dioxide 34 mmol/L (22.0-30.0); Chloride 98 mmol/L (98-107); Creatinine Clearance Estimated 129 mL/min (50-200); Estimated Glomerular Filt Rate 131 ml/min (>60); GFR (African American) 158 ML/MIN (>60); Glucose 139 mg/dl (74-100); Magnesium 1.7 mg/dl (1.6-2.3); Potassium 4.6 mmoL/L (3.5-5.1); Sodium 138 mmol/L (136-145)
--- NOTE | 2021-04-19 07:30 | HMH.PHAVTE ---
[facility] Pharm[facility] VTE Monitoring - Patient Demographics Admission date: 04/19/21 Report Date: 04/19/21 Time: 07:30 Allergies/Adverse Reactions: Patient Allergies No Known Allergies Allergy (Verified 04/18/21 19:49) Height: 1.7 m Weight: 60.923 kg Patient Problems: Current Active Problems Tobacco use (Acute) Acute exacerbation of chronic obstructive airways disease (Acute) SIRS (systemic inflammatory response syndrome) (Acute) - VTE Risk Labs: VTE Related Lab Results Hgb 12.8 g/dL (12.2-16.2) D 04/19/21 06:35 Hct 39.5 % (37.0-47.0) 04/19/21 06:35 Plt Count 200 K/mm3 (142-424) 04/19/21 06:35 BUN 12 mg/dl (7-17) 04/19/21 06:35 Creatinine 0.50 mg/dl (0.52-1.04) L 04/19/21 06:35 Estimated Creat Clear 129 mL/min (50-200) 04/19/21 06:35 Was VTE Risk Assessment Performed: Yes VTE Score: 5 VTE Risk Level: Low Risk Clinical Trial Participant: No - Prophylaxis VTE Prophylaxis Ordered?: Yes Types of VTE Prophylaxis: TEDS Knee High Location of Applied Device: Bilateral Lower Extremeties
--- NOTE | 2021-04-19 07:33 | HMH.PHAINT ---
VERIFIED HOME MEDICATION LIST USING LIST FROM CLINIC PHARMACY
--- NOTE | 2021-04-19 10:27 | HMH.HP ---
*Admission Date: 04/19/21 *Chief complaint: Shortness of breath *History of present illness: 50-year-old female patient presented to the [facility] ED with reports of increasing shortness of breath over the past 4 days, she reports she has been using her inhalers at home, history of COPD and is oxygen dependent at 2 L per nasal cannula. In the emergency department after three breathing treatments she was still short of breath and was admitted to the hospital. 04/18/21 CXR: FINDINGS: Lungs: Chronic pulmonary hyperinflation. Chronic calcified right lower pulmonary granuloma. Likely emphysematous changes greatest in the right upper lobe. No focal consolidation. Pleural spaces: Unremarkable. No significant pleural effusion. No pneumothorax. Heart/Mediastinum: The cardiac silhouette is normal. Bones/joints: Spinal degenerative changes with mild thoracolumbar scoliosis and spondylosis. IMPRESSION: 1. Chronic findings of COPD, with pulmonary hyperinflation, emphysematous changes, and chronic granulomatous change. 2. No focal consolidation. Electronically signed by Ale Barry MD 50-year-old female patient sitting up in bed resting quietly oxygenation 93% on 3 L per nasal cannula. She does report she is feeling a lot better today than yesterday. She reports also using her home Trilegy device and had a restful night. [facility] History I have reviewed the patient's past medical history: Yes Medical History: Reports:: Anxiety, Chronic Obstructive Pulmonary Disease (COPD), Depression Denies:: Cancer, Diabetes Mellitus Type 1, Diabetes Mellitus Type 2, MRSA *Have you ever received a pneumonia vaccine?: Yes *Have you received a flu vaccine this season?: No Laterality Cases: Bilateral: Tonsillectomy Other Surgeries: Yes: Appendectomy, Hernia Repair, Hysterectomy-Total, Hysterectomy-Partial, Other Amputation: No Fractures: No - *Social History Last grade of school completed: 9th or 10th Smoking Status: Current every day smoker Tobacco Type: cigarettes # Packs/Day (cigarettes): 1 Alcohol Intake: never Alcohol Intake Frequency:: holidays/special occasions only Substance Use Type: marijuana *Occupational Status:: disabled Housing: house Household Members: family *Travel in the last 8 weeks: None - Psychiatric History Pschychiatric History:: Reports:: Anxiety, Depression Family Hx:: Cancer, Diabetes, Hyperlipidemia, Hypertension, Kidney Disease, Stroke Review of Systems - Review of Systems Review of systems:: pertinent systems reviewed and negative unless documented below - Constitutional Reports fatigue, Denies body ache(s), Denies headache(s) - Eyes Reports loss of vision, Denies blind spots - ENT Reports abnormal hearing, Denies dizziness - *Cardiovascular Reports shortness of breath, Reports shortness of breath with activity, Denies chest pain, Denies leg pain with activity - *Respiratory Reports cough, Reports shortness of breath, Reports shortness of breath with activity, Reports wheezing, Denies coughing up blood - *Gastrointestinal Denies abdominal pain, Denies change in bowel habits - *Musculoskeletal Denies abnormal walking, Denies numbness - Integumentary/Breasts Denies bleeding lesions, Denies yellowing of the skin - *Neurologic Denies localized weakness, Denies headache(s), Denies seizure-like activity - Psychiatric Reports abnormal sleep pattern, Denies hearing things others do not hear, Denies change in appetite - Endocrine Denies heat intolerance, Denies rapid, pounding, or irregular heartbeat - Hematologic/Lymphatic Denies easy bruising, Denies enlarged lymph nodes - Allergic/Immunologic Denies lip swelling, Denies tongue swelling Meds Home Medications Medication Instructions Recorded Confirmed Type ipratropium 0.5 mg-albuterol 3 mg 3 ml INHALATION BID #180 ml 12/25/20 04/18/21 Rx (2.5 mg base)/3 mL nebulization soln diazepam 5 mg tablet 5 mg PO
--- NOTE | 2021-04-19 13:30 | PC.NURSE ---
Sputum induced, pt unable to make productive cough. Specimen cup left at bedside.
--- NOTE | 2021-04-19 17:39 | PC.NURSE ---
patient has done well this shift. complaints of a headache and medicated with tylenol. independent in room. currently unhooked from fluids per her request. patient is noted to be drinking well. has been up ambulating. has had no other complaints. has not appeared to be short of breath. regular diet ordered per md, per patient request. vitals stable.
--- NOTE | 2021-04-19 20:30 | PC.NURSE ---
She is A&Ox4. She received PRN pain medication for a headache. She has an intermittent, non-productive cough. She ambulates independently with steady gait. She reports her last BM was 04/17/21. She reports SOA at rest after a breathing treatment and SOA with exertion.
[2021-04-20 04:32] VITALS: BMI 21.0
[2021-04-20 06:29] LABS: Basophils % 0.1 % (0.1-2.0); Hemoglobin 12.5 g/dL (12.2-16.2); Lymphocytes # 0.7 K/mm3 (0.7-4.5); Mean Corpuscular Hemoglobin 31.3 pg (27.0-31.2); Mean Platelet Volume 8.5 fl (7.4-10.4); Monocytes # 0.3 K/mm3 (0.1-1.0); Monocytes % 3.4 % (1.7-9.3); Neutrophils # 8.5 K/mm3 (1.8-7.8); Neutrophils % 89.4 % (37.0-80.0); Platelet Count 201 K/mm3 (142-424); Red Blood Count 3.98 M/mm3 (4.20-5.40); Red Cell Distribution Width 13.5 % (11.5-17.5); White Blood Count 9.5 K/mm3 (4.8-10.8)
[2021-04-20 06:32] LABS: MANUAL DIFFERENTIAL MANUAL DIFFERENTIAL (MANUAL DIFF)
[2021-04-20 06:33] LABS: Anion Gap 11.6 mEq/L (5-15); Blood Urea Nitrogen 13 mg/dl (7-17); Carbon Dioxide 35 mmol/L (22.0-30.0); Chloride 98 mmol/L (98-107); Creatinine Clearance Estimated 129 mL/min (50-200); Estimated Glomerular Filt Rate 131 ml/min (>60); GFR (African American) 158 ML/MIN (>60); Glucose 137 mg/dl (74-100); Potassium 4.6 mmoL/L (3.5-5.1); Sodium 140 mmol/L (136-145)
[2021-04-20 06:45] VITALS: PULSE 75; PULSE 95; O2SAT 88
[2021-04-20 07:14] LABS: Lymphocytes % 8 % (10-50); Monocytes % 4 % (2-9); Neutrophils % 88 % (42-76); Platelet Estimate Normal; RBC Morphology Normal; Total Cells Counted 100
[2021-04-20 07:37] VITALS: RESP 18
[2021-04-20 07:39] VITALS: BP 111/42; PULSE 100; RESP 20; TEMP 36.6; O2SAT 93
[2021-04-20 08:00] VITALS: O2SAT 93
--- NOTE | 2021-04-20 08:03 | ECG_ITS ---
APPROVED REPORT Exam: Resting ECG HR:97 bpm ECG Measurements Heart Rate 97 AXES [place] 126 P 82 QRSd 74 QRS 66 QT 318 T 58 QTc 403 Conclusion Normal sinus rhythm Late R wave progression, unchanged from prior Abnormal ECG Electronically signed by : Gage Duarte, 04/20/2021 18:50:12
--- NOTE | 2021-04-20 08:07 | XR_ITS ---
PROCEDURE: XR CHEST PORTABLE CLINICAL HISTORY: CP Chest pain COMPARISON: CR CXR2V XR chest 2V from 02/09/[address] angio chest from 02/12/2019 CR XR CHEST PORTABLE from 01/07/2020 CR XR CHEST PORTABLE from 04/18/2021 FINDINGS: The cardiomediastinal silhouette and pulmonary vascularity are within normal limits. COPD changes. No lobar consolidation or collapse. No acute bony abnormalities. IMPRESSION: COPD changes otherwise negative Dictated by: Leo Reynaga MD 04/20/2021 08:48 Leo Reynaga MD in [place] 04/20/2021 08:48
[2021-04-20 09:01] LABS: Troponin I < 0.01 ng/ml (0.00-0.034)
--- NOTE | 2021-04-20 10:07 | HMH.CNCARD ---
History of Present Illness Consult date: 04/20/21 Requesting physician: Milton Machuca Consult reason: chest pain Chief complaint: chest pain, COPD History of present illness: 50 year-old female with significant COPD for which she is on chronic oxygen therapy and permanent disability presented to the emergency department last night due to increasing shortness of breath. Patient denied chest pain, tightness or pressure upon admission to ED. Patient stated after not receiving her antianxiety medication this a.m., she began to develop midsternal chest pain radiating down both arms. She relates left-sided chest discomfort mainly with coughing or deep breathing. Patient states she is becomes very anxious and that is when her chest pain begins. Patient does complain of shortness of breath but states it is no worse than normal for her. Patient states when she took her anxiety medication, her chest pain was relieved. Serial troponins were performed which were negative. EKG revealed sinus rhythm with late R wave progression with a heart rate of [address] segment changes noted. Vital signs are stable at this time. Patient denies any previous cardiac history and denies history of treatment for hypertension hyperlipidemia. Patient's COPD is managed by pulmonology and PCP. Patient does have history of pulmonary hypertension and diastolic dysfunction. Last echocardiogram was in 2019 which revealed normal left atrial size, EF over 65% with no regional wall motion abnormality, mild MR and TR also noted. Chest x-ray revealed COPD chronic changes otherwise negative. Echocardiograms was obtained. No results noted at this time. Patient denies any swelling of the lower extremities. Patient denies dizziness or palpitations. EchoCONCLUSION:(2019) 1. Normal left atrial size, normal left ventricular size, hyperdynamic left ventricular systolic function, visually estimated ejection fraction over 65% with no regional wall motion abnormality, diastolic parameters are inconclusive. 2. Mildly enlarged right ventricle with normal contractility. 3. Mild mitral and tricuspid regurgitation 4. No significant pericardial effusion noted. Discussed plan of care with Dr. Cervantes. Orders and recommendations were received from Dr. Cervantes. Obtain echocardiogram to assess LV function and valve status. Would recommend right heart catheterization due to pulmonary hypertension and diastolic dysfunction on an outpatient basis. Management of COPD deferred to PCP and pulmonology. Please continue to monitor patient status. Please notify cardiology of any changes in patient status. Thank you for allowing cardiology to participate in the care of this patient. [facility] History I have reviewed the patient's past medical history: Yes Medical History: Reports:: Anxiety, Chronic Obstructive Pulmonary Disease (COPD), Depression Denies:: Cancer, Diabetes Mellitus Type 1, Diabetes Mellitus Type 2, MRSA *Have you ever received a pneumonia vaccine?: Yes *Have you received a flu vaccine this season?: No Laterality Cases: Bilateral: Tonsillectomy Other Surgeries: Yes: Appendectomy, Hernia Repair, Hysterectomy-Total, Hysterectomy-Partial, Other Amputation: No Fractures: No - *Social History Last grade of school completed: 9th or 10th Smoking Status: Current every day smoker Tobacco Type: cigarettes # Packs/Day (cigarettes): 1 Alcohol Intake: never Alcohol Intake Frequency:: holidays/special occasions only Substance Use Type: marijuana *Occupational Status:: disabled Housing: house Household Members: family *Travel in the last 8 weeks: None - Psychiatric History Pschychiatric History:: Reports:: Anxiety, Depression Family Hx:: Cancer, Diabetes, Hyperlipidemia, Hypertension, Kidney Disease, Stroke Meds Home Medications Medication Instructions Recorded Confirmed Type ipratropium 0.5 mg-albuterol 3 mg 3 ml INHALATION BID #180 ml 12/25/20 04/18/21 Rx (2.5 mg base)/3
[2021-04-20 12:17] LABS: Troponin I < 0.01 ng/ml (0.00-0.034)
--- NOTE | 2021-04-20 13:39 | HMH.DCSUM ---
General - General Admission date:: 04/18/21 Discharge date: 04/20/21 HPI HPI: 50-year-old female patient presented to the [facility] ED with reports of increasing shortness of breath over the past 4 days, she reports she has been using her inhalers at home, history of COPD and is oxygen dependent at 2 L per nasal cannula. In the emergency department after three breathing treatments she was still short of breath and was admitted to the hospital. 04/18/21 CXR: FINDINGS: Lungs: Chronic pulmonary hyperinflation. Chronic calcified right lower pulmonary granuloma. Likely emphysematous changes greatest in the right upper lobe. No focal consolidation. Pleural spaces: Unremarkable. No significant pleural effusion. No pneumothorax. Heart/Mediastinum: The cardiac silhouette is normal. Bones/joints: Spinal degenerative changes with mild thoracolumbar scoliosis and spondylosis. IMPRESSION: 1. Chronic findings of COPD, with pulmonary hyperinflation, emphysematous changes, and chronic granulomatous change. 2. No focal consolidation. Electronically signed by Ale Barry MD 50-year-old female patient sitting up in bed resting quietly oxygenation 93% on 3 L per nasal cannula. She does report she is feeling a lot better today than yesterday. She reports also using her home Trilegy device and had a restful night. Hospital Course Hospital Course: pt with slow but steady improvement in hospital with resp treatments and ivf and steroids and abx - pt improved and tolerated diet and activity and o2 requirements improved to baseline - pt had episode of chest pain and was seen by card -1 year-old female with significant COPD for which she is on chronic oxygen therapy and permanent disability presented to the emergency department last night due to increasing shortness of breath. Patient denied chest pain, tightness or pressure upon admission to ED. Patient stated after not receiving her antianxiety medication this a.m., she began to develop midsternal chest pain radiating down both arms. She relates left-sided chest discomfort mainly with coughing or deep breathing. Patient states she is becomes very anxious and that is when her chest pain begins. Patient does complain of shortness of breath but states it is no worse than normal for her. Patient states when she took her anxiety medication, her chest pain was relieved. Serial troponins were performed which were negative. EKG revealed sinus rhythm with late R wave progression with a heart rate of [address] segment changes noted. Vital signs are stable at this time. Patient denies any previous cardiac history and denies history of treatment for hypertension hyperlipidemia. Patient's COPD is managed by pulmonology and PCP. Patient does have history of pulmonary hypertension and diastolic dysfunction. Last echocardiogram was in 2019 which revealed normal left atrial size, EF over 65% with no regional wall motion abnormality, mild MR and TR also noted. Chest x-ray revealed COPD chronic changes otherwise negative. Echocardiograms was obtained. No results noted at this time. Patient denies any swelling of the lower extremities. Patient denies dizziness or palpitations. choCONCLUSION:(2019) 1. Normal left atrial size, normal left ventricular size, hyperdynamic left ventricular systolic function, visually estimated ejection fraction over 65% with no regional wall motion abnormality, diastolic parameters are inconclusive. 2. Mildly enlarged right ventricle with normal contractility. 3. Mild mitral and tricuspid regurgitation 4. No significant pericardial effusion noted. Discussed plan of care with Dr. Cervantes. Orders and recommendations were received from Dr. Cervantes. Obtain echocardiogram to assess LV function and valve status. Would recommend right heart catheterization due to pulmonary hypertension and diastolic dysfunction on an outpatient basis. Man
--- NOTE | 2021-04-20 14:12 | HMH.PHAINT ---
DISCHARGE MEDICATION COUNSELING COMPLETED. PATIENT REPORTS NO QUESTIONS OR CONCERNS AT THIS TIME.
[2021-04-20 15:03] LABS: Troponin I < 0.01 ng/ml (0.00-0.034)
== END 2021-04-20 02:43 | disposition home or self-care (01) ==
LOC: ER 16:09 → 2ND 17:43
PROVIDERS: Nurse Practitioner Family; Admitting Provider Emergency Medicine; Emergency Provider Emergency Medicine; PCP Emergency Medicine; Visit Provider Emergency Medicine
DX: J44.1 Chronic obstructive pulmonary disease with (acute) exacerbation (principal); Z99.81 Dependence on supplemental oxygen; F41.9 Anxiety disorder, unspecified; F32.9 Major depressive disorder, single episode, unspecified; F17.210 Nicotine dependence, cigarettes, uncomplicated; R65.10 Systemic inflammatory response syndrome (SIRS) of non-infectious origin without acute organ dysfunction; I27.20 Pulmonary hypertension, unspecified
CPT/HCPCS: 36415; 71045; 80048; 80053; 81001; 82803; 83605; 83735; 84484; 85007; 85025; 87040; 87070; 87205; 93005; 93306; 94640; 94761; 96365; 96366; 99285; 99291; G0378; J1956; U0003

== ENCOUNTER → 2021-05-09 16:59 | Outpatient (CLI) | payer MEDICARE, SELFPAY ==
[2021-05-09 17:35] LABS: Basophils % 0.4 % (0.1-2.0); Eosinophils % 0.4 % (0.1-12.0); Hematocrit 37.9 % (37.0-47.0); Hemoglobin 12.1 g/dL (12.2-16.2); Lymphocytes % 11.3 % (10-50); Mean Corpuscular Volume 96.8 fl (81-99); Mean Platelet Volume 8.2 fl (7.4-10.4); Monocytes # 0.3 K/mm3 (0.1-1.0); Monocytes % 2.9 % (1.7-9.3); Neutrophils # 7.2 K/mm3 (1.8-7.8); Platelet Count 169 K/mm3 (142-424); Red Blood Count 3.91 M/mm3 (4.20-5.40); Red Cell Distribution Width 13.5 % (11.5-17.5); White Blood Count 8.5 K/mm3 (4.8-10.8)
[2021-05-09 17:46] LABS: MANUAL DIFFERENTIAL MANUAL DIFFERENTIAL (MANUAL DIFF)
[2021-05-09 17:53] LABS: Chloride 99 mmol/L (98-107); Potassium 4.1 mmoL/L (3.5-5.1); Sodium 139 mmol/L (136-145)
[2021-05-09 17:56] LABS: Blood Urea Nitrogen 6 mg/dl (7-17); Estimated Glomerular Filt Rate 131 ml/min (>60); GFR (African American) 158 ML/MIN (>60)
[2021-05-09 17:57] LABS: Anion Gap 10.1 mEq/L (5-15); Carbon Dioxide 34 mmol/L (22.0-30.0); Glucose 86 mg/dl (74-100)
[2021-05-09 18:30] LABS: Lymphocytes % 11 % (10-50); Monocytes % 5 % (2-9); Neutrophils % 84 % (42-76); Total Cells Counted 100
[2021-05-09 18:31] LABS: Platelet Estimate Normal
== END ==
PROVIDERS: Visit Provider Urology
DX: I20.8 Other forms of angina pectoris (principal); I27.20 Pulmonary hypertension, unspecified; J20.9 Acute bronchitis, unspecified; J44.0 Chronic obstructive pulmonary disease with (acute) lower respiratory infection; J44.9 Chronic obstructive pulmonary disease, unspecified; R06.00 Dyspnea, unspecified; Z72.0 Tobacco use; Z01.810 Encounter for preprocedural cardiovascular examination; Z11.52 Encounter for screening for COVID-19
CPT/HCPCS: 36415; 80048; 85007; 85025; U0003

== ENCOUNTER 2021-05-10 11:40 | Day surgery (SDC) | payer MEDICARE, SELFPAY ==
[2021-05-10] VITALS (8 sets, daily range): BP systolic 95–158; BP diastolic 60–87; PULSE 86–97; RESP 18–20; O2SAT 92–100; BMI 21.4
--- NOTE | 2021-05-10 07:17 | IR_ITS ---
APPROVED REPORT Patient Location: Outpatient PROCEDURES Right heart catheterization Left heart catheterization Left ventriculogram Selective coronary INDICATION Pulmonary pretension, Worsening angina pectoris, Unable to proceed with stress testing due to advanced lung disease Informed consent was obtained prior to the procedure. COMPLICATIONS NONE Estimated Blood Loss: LESS THAN 10 ML TECHNIQUE One percent lidocaine was used to anesthetize the right anterior aspect of the right wrist. The right radial artery was accessed via the Seldinger technique and a 6 Setswana hydrophilic sheath was placed in the right radial artery. Following this one percent lidocaine was used to anesthetize the right anterior aspect of the right neck. The right internal jugular vein was accessed via the Seldinger technique and a 7 Setswana sheath was placed in the right internal jugular vein. Following this an arterial cocktail was administered using 5000U heparin, 2.5 mg verapamil, 1mg Lidocaine and 800mcg nitroglycerin into the right radial sheath. A trap catheter was used to perform left heart catheterization left ventriculogram and selective coronary angiography while a [place]rina catheter was used to perform right heart catheterization. Saturations were obtained in the pulmonary artery and right atrium. At the end of the procedure the arterial sheath was removed good hemostasis was achieved using Traclet band. Patient was transferred to the postop holding area in stable condition for venous sheath removal. ANGIOGRAPHIC RESULTS The left main artery Normal The left anterior descending artery Normal The circumflex artery Normal The right coronary artery Dominant normal The MONTES ventriculogram reveals Normal 65% The left ventricular end-diastolic pressure 12 mmHg Right atrial pressure 7 mmHg Right ventricular pressure 27/20 mmHg Pulmonary occlusion pressure 15 mmHg Right atrial saturation 84% Pulmonary saturation 89% IMPRESSION Normal coronary arteries Normal ejection fraction Mild pulmonary hypertension with mildly elevated left-sided filling pressures PLAN 1. PFTs 2. Sleep study 3. Treat underlying COPD 4. 7 patient symptoms may stem from a mild degree of diastolic dysfunction therefore should be treated accordingly Electronically signed by : Nito Christopher, 05/10/2021 13:08:13
[2021-05-10 13:19] LABS: CATHL Arterial O2 SAT 89 % (90-100); CATHL Venous O2 SAT 84 % (75-80)
== END 2021-05-10 15:13 | disposition hospice, home (50) ==
LOC: CATHLAB 11:42
PROVIDERS: PCP Emergency Medicine; Visit Provider Internal Medicine
DX: I20.8 Other forms of angina pectoris (principal); I27.20 Pulmonary hypertension, unspecified; R06.00 Dyspnea, unspecified; F17.210 Nicotine dependence, cigarettes, uncomplicated; J44.1 Chronic obstructive pulmonary disease with (acute) exacerbation
CPT/HCPCS: 82810; 93460; 99152; C1725; C1769; C1894; J1644; Q9967

== ENCOUNTER → 2021-05-23 13:01 | Outpatient (CLI) | payer MEDICARE, SELFPAY ==
--- NOTE | 2021-05-23 13:03 | CA_ITS ---
APPROVED REPORT Head Of Ict: TRISTA Indications Painful knot on right wrist, cardiac cath 05/10/21 Risk Factors Current Smoker COPD Findings Study demonstrates no evidence of a pseudoaneurysm. Conclusion Study demonstrates no evidence of a pseudoaneurysm. Electronically signed by : Leo Reynaga MD 05/23/2021 16:06:14
== END ==
LOC: RT 13:03
PROVIDERS: PCP Emergency Medicine; Visit Provider Physician Assistant
DX: I77.0 Arteriovenous fistula, acquired (principal)
CPT/HCPCS: 93931

== ENCOUNTER → 2021-09-28 09:45 | Outpatient (CLI) | payer MEDICARE, SELFPAY ==
--- NOTE | 2021-09-28 09:46 | CA_ITS ---
APPROVED REPORT Right Lower Extremity Venous Study for DVT. Industrial Maintenance Mechanic: ANGELA De AndaT Indications Lower Extremity Pain: Right History of Smoking PAIN BEHIND RT KNEE,HX DVT Risk Factors Prior Phlebitis/DVT History of Smoking Past History DVT : Vein Imaging CFV (R): compressive, spontaneous, phasic, augmentation FEM (R): compressive, spontaneous, phasic, augmentation POP (R): compressive, spontaneous, phasic, augmentation PTV (R): Compressible GSV (R): Compressible Peroneals (R):Compressible GAS (R): Compressible Findings Study suggests no evidence of DVT or SVT of the right lower extremity. Conclusion Study suggests no evidence of DVT or SVT of the right lower extremity. Electronically signed by : Leo Reynaga MD 09/28/2021 17:03:38
== END ==
LOC: RT 09:46
PROVIDERS: PCP Emergency Medicine; Visit Provider Emergency Medicine
DX: M79.89 Other specified soft tissue disorders (principal); M79.601 Pain in right arm
CPT/HCPCS: 93971

== ENCOUNTER → 2021-10-30 12:43 | Outpatient (CLI) | payer MEDICARE, SELFPAY | PROVIDERS: Visit Provider Nurse Practitioner | DX: Z20.822 Contact with and (suspected) exposure to COVID-19 (principal) | CPT/HCPCS: C9803; U0003; U0005 ==

== ENCOUNTER → 2022-05-01 16:56 | Outpatient (CLI) | payer MEDICARE, SELFPAY ==
[2022-05-01 18:09] LABS: Basophils # 0.1 K/mm3 (0-0.2); Basophils % 1.2 % (0.1-2.0); Eosinophils # 0.4 K/mm3 (0.0-0.4); Eosinophils % 6.2 % (0.1-12.0); Hematocrit 39.8 % (37.0-47.0); Lymphocytes # 1.6 K/mm3 (0.7-4.5); Lymphocytes % 26.6 % (10-50); Mean Corpuscular HGB Conc 32.6 g/dL (31.8-35.4); Mean Corpuscular Hemoglobin 30.6 pg (27.0-31.2); Mean Corpuscular Volume 93.8 fl (81-99); Mean Platelet Volume 10.2 fl (7.4-10.4); Monocytes # 0.3 K/mm3 (0.1-1.0); Monocytes % 5.6 % (1.7-9.3); Neutrophils # 3.6 K/mm3 (1.8-7.8); Neutrophils % 60.3 % (37.0-80.0); Platelet Count 273 K/mm3 (142-424); Red Blood Count 4.24 M/mm3 (4.20-5.40); Red Cell Distribution Width 12.8 % (11.5-17.5); White Blood Count 5.9 K/mm3 (4.8-10.8)
[2022-05-01 18:16] LABS: Alanine Aminotransferase 13 U/L (12-78); Albumin Level 4.3 g/dl (3.5-5.0); Albumin/Globulin Ratio 1.9 (1.1-1.8); Alkaline Phosphatase 88 U/L (38-126); Anion Gap 10.2 mEq/L (5-15); Aspartate Amino Transferase 21 U/L (14-36); Blood Urea Nitrogen 12 mg/dl (7-17); Calcium 9.4 mg/dl (8.4-10.2); Carbon Dioxide 36 mmol/L (22.0-30.0); Chloride 97 mmol/L (98-107); Cholesterol 242 mg/dl (140-200); Estimated Glomerular Filt Rate 130 ml/min (>60); GFR (African American) 157 ML/MIN (>60); Globulin 2.3 g/dL (1.3-3.2); Glucose 56 mg/dl (74-100); HDL Cholesterol 61 mg/dl (40-60); Potassium 4.2 mmoL/L (3.5-5.1); Sodium 139 mmol/L (136-145); Total Protein,Serum 6.6 g/dl (6.3-8.2); Triglycerides 85 mg/dl (30-150); VLDL Cholesterol 17 mg/dL (0-40)
[2022-05-01 18:18] LABS: Bilirubin,Total < 0.1 mg/dl (0.2-1.3)
[2022-05-01 18:27] LABS: Direct LDL Cholesterol 141.31 mg/dL (100-129)
[2022-05-01 18:34] LABS: Free T4 (Free Thyroxine) 0.92 ng/dl (0.78-2.19)
[2022-05-01 18:47] LABS: Thyroid Stimulating Hormone 1.39 uIU/mL (0.465-4.68)
[2022-05-08 17:13] LABS: 1,25 Dihydroxy Vitamin D 54 pg/mL (.); 1,25-Dihydroxy, Vitamin D-2 <10 pg/mL (.); 1,25-Dihydroxy, Vitamin D-3 53 pg/mL (.)
== END ==
PROVIDERS: PCP Emergency Medicine; Visit Provider Emergency Medicine
DX: J44.1 Chronic obstructive pulmonary disease with (acute) exacerbation (principal); F41.9 Anxiety disorder, unspecified; I20.8 Other forms of angina pectoris; R06.00 Dyspnea, unspecified
CPT/HCPCS: 80053; 80061; 82652; 84439; 84443; 85025

== ENCOUNTER → 2022-09-02 13:08 | Outpatient (CLI) | payer MEDICARE, SELFPAY ==
--- NOTE | 2022-09-02 13:09 | MM_ITS ---
PROCEDURE INFORMATION: Exam: MG Bilateral Screening 3D Mammography Exam date and time: 09/02/2022 1:10 PM Age: 52 years old Clinical indication: Screening. A maternal and paternal aunt had breast cancer. TECHNIQUE: Imaging protocol: Bilateral Screening tomosynthesis and 2D mammography including computer-aided detection (CAD) when performed. COMPARISON: 1. MG MM DIG SCREENING MAMM BI W/CAD 04/19/2020 1:05 PM 2. MG DMSB DIG MAMM-SCREEN ANGELICA W/CAD 06/26/2017 8:36 AM 3. MG DMSB DIG MAMM-SCREEN ANGELICA 12/30/2014 9:06 AM 4. MG MM MAMMO DIGITAL DIAGNOSTIC W CAD BILAT 02/24/2013 1:33 PM FINDINGS: MAMMOGRAPHY: Breast composition: The breasts are heterogeneously dense, which may obscure small masses. Mass: None. Architectural distortion: None. Calcifications: No suspicious calcifications. Asymmetric density: None. Skin thickening: None. Axillary adenopathy: None. IMPRESSION: No mammographic evidence of malignancy. Annual screening is recommended unless otherwise clinically indicated. ASSESSMENT: BI-RADS Category 1: Negative
== END ==
PROVIDERS: PCP Emergency Medicine; Visit Provider Student in an Organized Health Care Education/Training Program
DX: Z12.31 Encounter for screening mammogram for malignant neoplasm of breast (principal)
CPT/HCPCS: 77063; 77067